=== PATIENT | male | born 1935 | race Caucasian/White ===

== ENCOUNTER 2016-12-13 12:17 | Inpatient (IN) | payer MEDICARE, BC ==
[~2016-12-13] VITALS: Ht 180.3 cm; Wt 67.9 kg
[2016-12-13 14:06] LABS: BASO % 0.7 % (0.0-1.0); EOS # 0.1 K/mm3 (0.0-0.50); EOS % 1.5 % (0.0-3.0); LARGE UNSTAINED CELL # 0.2 K/mm3 (0.0-0.4); LYMPH # 1.3 K/mm3 (1.5-4.5); LYMPH % 16.1 % (24.0-44.0); MEAN CORPUSCULAR HEMOGLOBIN 30.5 pg (27.0-33.0); MEAN CORPUSCULAR HGB CONC 33.7 g/dl (32.0-36.5); MEAN CORPUSCULAR VOLUME 90.5 fl (80.0-96.0); MONO # 0.4 K/mm3 (0.0-0.8); MONO % 5.4 % (0.0-5.0); NEUTROPHILS % 74.4 % (36.0-66.0); PLATELET COUNT, AUTOMATED 235 k/mm3 (150-450); RED CELL DISTRIBUTION WIDTH 12.6 % (11.5-14.5)
--- NOTE | 2016-12-13 14:15 | REP ---
Chest one-view HISTORY: Chest pain Comparison: None The lungs are clear. The heart is normal in size. The pulmonary vasculature is normal in appearance. Impression: No acute disease. Signed by Kit Rick MD 12/13/2016 02:08 P
[2016-12-13 14:20] LABS: ANION GAP 9 MEQ/L (8-16); BLOOD UREA NITROGEN 21 MG/DL (7-18); CALCIUM LEVEL 9.4 MG/DL (8.8-10.2); CARBON DIOXIDE LEVEL 29 MEQ/L (21-32); CHLORIDE LEVEL 101 MEQ/L (98-107); CREATININE FOR GFR 1.06 MG/DL (0.70-1.30); GLOMERULAR FILTRATION RATE > 60.0 (>35); GLUCOSE, FASTING 157 MG/DL (83-110); POTASSIUM SERUM 4.4 MEQ/L (3.5-5.1); SODIUM LEVEL 139 MEQ/L (136-145)
[2016-12-13] MEDS ORDERED: MECLIZINE 12.5 MG TAB As Ordered ONE (15:11)
--- NOTE | 2016-12-13 15:46 | REP ---
CT HEAD WITHOUT CONTRAST: HISTORY: Dizziness. Areas of decreased attenuation are present in the periventricular white matter. This represents small vessel ischemic disease. A small focus of decreased attenuation is present in the right cerebellum. This represents and old lacunar infarction. A small area of decreased attenuation is present in the posteromedial left cerebellum. This may represent a infarction of indeterminate age versus volume averaging with the horizontal fissure. There is no intraparenchymal hemorrhage, mass or midline shift. The ventricular system and cortical sulci are dilated consistent with mild volume loss. There is no extracerebral collection. Minimal mucosal thickening is present in the right mastoid air cells. The visualized sinuses are clear. IMPRESSION: 1. Small vessel ischemic disease. 2. 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 3. Possible small left cerebellar infarction versus volume averaging with the horizontal fissure. 4. Mild volume loss. MR may be helpful for further evaluation. Signed by Kit Rick MD 12/13/2016 03:48 P
[2016-12-13] MEDS ORDERED: GLUC1CAP9 PO (17:13)
[2016-12-13] MEDS ORDERED: FISH1000 PO (17:13)
--- NOTE | 2016-12-13 19:20 | REPUSA ---
CLINICAL HISTORY: Dizziness. TECHNIQUE: Three dimensional ihvy-fk-edkltw angiography is performed of the [place]. The kat[place] dy was performed without IV contrast agent. FINDINGS: The supraclinoid portions of the internal carotid arteries are of normal shape. The normal bifurcation is seen. The middle cerebral arteries are unremarkable in appearance. The posterior circu lation is visualized and shows no evidence of occlusion or aneurysm formation. The basilar tip is see n and shows no aneurysm formation. There is no evidence of beading to suggest vasculitis. IMPRESSION: MRA of the [place] is within normal limits. Thank you for your kind referral of this patient.
[2016-12-13] MEDS ORDERED: ASPIRIN 325 MG TAB As Ordered ONE (19:26)
--- NOTE | 2016-12-13 19:30 | REPUSA ---
CLINICAL HISTORY: Dizziness TECHNIQUE: MRI of the brain was performed without administration of intravenous contrast material. T1 spine echo, T2 fast spin echo, DWI and FLAIR sequences were obtained in sagittal, axial and coronal planes. FINDINGS: Note is made of focal area of restricted diffusion involving medial aspect of hemispheric left cerebe llar compatible with acute infarct. The sella and parasellar regions are unremarkable in appearance. The corpus callosum and cerebellar t onsils are of normal configuration and position. There are no intra or extra-axial collections. There is no mass effect or midline shift. There is no evidence of hematoma formation. There is no hydrocep halus. The brain stem shows no mass effects, infarcts or hemorrhage. There are no cerebellopontine tumors. T he acoustic nerves are symmetrical. No cerebellar intra-axial pathology delineated. The fourth ventri claire and aqueduct are normal. No abnormalities of the optic nerves are identified. No dural or subdura l masses or collections are detected. There is evidence for generalized symmetrical dilatation of the ventricles and cortical sulci consist ent with parenchymal atrophy. There are bilateral periventricular and subcortical T2 and FLAIR hyperintensities extending into cent rum [place] compatible with severe chronic white matter ischemic disease. The visualized arterial structures demonstrate normal appearing flow voids. The VII and VIII nerve bu ndles are visualized and are unremarkable in appearance. Mucosal thickening is seen involving bilateral ethmoid and maxillary sinuses compatible with chronic sinusitis. IMPRESSION: 1. Generalized age-appropriate parenchymal atrophy. 2. Bilateral periventricular and subcortical white matter severe chronic ischemic changes. 3. Chronic ethmoid and maxillary sinusitis. 4. Acute left cerebellar infarct. Results were reported to ADY FARMER
--- NOTE | 2016-12-13 19:30 | REPUSA ---
HISTORY: Dizziness. TECHNIQUE: resonance angiography of the neck was performed at 1.5T with 2-D axial ongf-nq-irtkva imag es. During the dynamic injection of gadolinium contrast material intravenously coronal 3D time-of-fli ght MRA of the neck was performed. All images are retrospectively targeted and reformatted in three d imensions according to standard protocol. Motion degraded study. FINDINGS: NECK - There is normal anatomy. The right vertebral artery is dominant. No flow restrictive stenoses. Mild atherosclerotic changes are noted at both common carotid bifurcations and proximal ICAs. IMPRESSION: Mild atherosclerotic changes are noted at both common carotid bifurcations and proximal ICAs. Thank you for your kind referral of this patient
[2016-12-13] MEDS ORDERED: ONDANSETRON 4MG/2ML VIAL (J2405) IV PRN (19:45)
[2016-12-13] MEDS ORDERED: ACETAMINOPHEN TAB 650MG DOSE (2X325MG) PO PRN (19:45)
--- NOTE | 2016-12-13 19:58 | ECGEPIP ---
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
[2016-12-13] MEDS ORDERED: CARVedilol 3.125 MG TAB PO ONE (21:00)
--- NOTE | 2016-12-13 21:09 | HPE ---
DATE OF ADMISSION: 12/13/2016 PRIMARY CARE PROVIDER: [facility] HISTORY OF PRESENT ILLNESS: 81-year-old gentleman presents with elevated blood pressure, systolic in the 190 range at [facility], was sent here due to continued dizziness, worsening over the last several days to 1 week. The , who is present at bedside, also stated that she noticed that he had some gait instability which is unusual for him and he has been relatively healthy up to this point. He denies double vision, blurry vision, no difficulty with speech or swallow. No chest pain. No cough. No hemoptysis. No nausea or vomiting. PAST MEDICAL HISTORY: None. PAST SURGICAL HISTORY: Nasal polyp removed by Dr. Rose recently. SOCIAL HISTORY: He smoked a pipe for years, quit about 10 years ago. No alcohol use. No travel history. He has had sick exposure with his having an upper respiratory infection in October. FAMILY HISTORY: Noncontributory due to advanced age. ALLERGIES: No known drug allergies. HOME MEDICATIONS: - glucosamine chondroitin twice a day - fish oil twice a day REVIEW OF SYSTEMS: Constitutional: No fevers, chills, rigors. No change in appetite. HEENT: No blurry vision, double vision or tinnitus. No difficulty with speech or swallow. Pulmonary: No productive sputum, cough or hemoptysis. Cardiovascular: No chest pain. No paroxysmal nocturnal dyspnea (PND). No orthopnea. No lower extremity edema. GI: No nausea or vomiting, diarrhea. No hematochezia or melena. : No dysuria, frequency or hematuria. Musculoskeletal: No bone, muscle or joint pain, swelling or erythema. Neurologic: Increased dizziness with abnormal MRI. See below. Endocrine: Negative for diabetes. Negative for thyroid disorder. Hematology: No history of bleeding or bruising disorder. No prior history of venous thromboembolism. Oncology: No history of cancer. Psychiatry: No history of depression, anxiety. No suicidal ideation. No audiovisual hallucination. 10-point review of systems complete; pertinent positives are listed. PHYSICAL EXAMINATION: Temperature is 96.6, respiratory rate 18, nonlabored, pulse is 82 and regular, blood pressure did go to 193/91, did not appear to be orthostatic on orthostatic evaluation. In the emergency department, he was given a 500 mL bolus of normal saline and meclizine 25 mg. HEENT: Unremarkable. No lateral nystagmus. Throat is clear. Neck: Supple. Lungs: Clear. Heart: Regular rate and rhythm. Abdomen: Soft. Extremities: No edema, no calf tenderness. Riveter Helper strength is equal. Neurologic: Cranial nerves II-XII grossly intact. He does not demonstrate any focal neurologic deficits. I did not stand him up due to complaint of gait instability. LABS AND DIAGNOSTICS: 12-lead EKG - sinus rhythm with no acute ST-T wave abnormality. White count is 8.0, hemoglobin 14.9 and platelets 235,000. Sodium 139, potassium 4.4, chloride 101, bicarbonate 29, anion gap 9, BUN 21, creatinine 1.06, glucose 157, hemoglobin A1c 6.1, CK is 100, CK-MB 2.2, troponin less than 0.02. Urinalysis is unremarkable. Urine culture pending. Chest x-ray: No acute cardiopulmonary processes. No infiltrate. No consolidation. Head CT: Small vessel ischemic disease, old right cerebellar lacuna infarct and possible left small cerebellar infarct versus volume averaging with horizontal fissure, mild volume loss. MRI of the carotid arteries: Mild atherosclerotic changes noted with both common carotid bifurcations and proximal ICAs, no significant stenosis reported. Brain MRI: Generalized age-appropriate parenchymal atrophy, bilateral periventricular subcortical white matter, severe chronic ischemic changes noted, chronic ethmoid and maxillary sinusitis and acute left cerebellar infarct is noted. MRA of the brain within normal limits. IMPRESSION: Mr. Mario is a pleasant 81-year-old gentleman who has been relatively healthy up to this point, but has had ongoing issues with dizziness and gait instability for the last several days. He was sent in by his provider at [facility] due to elevated blood pressures. MRI did reveal a new acute left cerebellar infarct. PROBLEM LIST: 1. Acute cerebellar infarct with dizziness. 2. Hypertensive emergency versus urgency. 3. Otherwise relatively healthy. PLAN: The patient will be admitted to progressive care unit (PCU) on telemetry. Will check a 2D echo to complete workup for his stroke. Dr. Pereira will be consulted. The patient will continue on full-dose aspirin. Will check a lipid panel in the morning as well as a 2D echo. Will start on Coreg 3.125 mg times one now and daily starting tomorrow morning with hold parameters. Deep vein thrombosis (DVT) prophylaxis with subcu Lovenox, and I did request consults from physical therapy, occupational therapy and speech therapy. DISPOSITION: Anticipate the patient to be ready for home discharge in 2-3 days, depending on how he does with his gait. Tomorrow morning, the patient will be followed by Dr. Graff.
[2016-12-13 21:10] VITALS: BP 158/75
[2016-12-13] MEDS ORDERED: DOCUSATE SODIUM 100 MG CAP As Ordered ONE (21:37)
[2016-12-13] MEDS: DOCUSATE SODIUM 100 MG CAP PO SCH (21:41)
[2016-12-14] VITALS (8 sets, daily range): BP systolic 117–139; BP diastolic 56–72
[2016-12-14 06:55] LABS: MEAN CORPUSCULAR HEMOGLOBIN 31.4 pg (27.0-33.0); MEAN CORPUSCULAR HGB CONC 34.5 g/dl (32.0-36.5); MEAN CORPUSCULAR VOLUME 91.1 fl (80.0-96.0); RED CELL DISTRIBUTION WIDTH 12.8 % (11.5-14.5); WHITE BLOOD COUNT 9.6 K/mm3 (4.0-10.0)
[2016-12-14 06:57] LABS: ANION GAP 8 MEQ/L (8-16); BLOOD UREA NITROGEN 16 MG/DL (7-18); CALCIUM LEVEL 8.7 MG/DL (8.8-10.2); CARBON DIOXIDE LEVEL 28 MEQ/L (21-32); CHLORIDE LEVEL 106 MEQ/L (98-107); CHOLESTEROL LEVEL 209 MG/DL (<200); CREATININE FOR GFR 1.03 MG/DL (0.70-1.30); GLOMERULAR FILTRATION RATE > 60.0 (>35); GLUCOSE, FASTING 106 MG/DL (83-110); SODIUM LEVEL 142 MEQ/L (136-145); TRIGLYCERIDES LEVEL 141 MG/DL (<150)
[2016-12-14] MEDS ORDERED: ENOXAPARIN 40 MG/0.4 ML SYRINGE (J1650) As Ordered ONE (07:53)
[2016-12-14] MEDS ORDERED: ATORVASTATIN 20 MG TAB As Ordered ONE (07:53)
[2016-12-14] MEDS ORDERED: DOCUSATE SODIUM 100 MG CAP As Ordered ONE (07:53)
[2016-12-14] MEDS ORDERED: ASPIRIN 325 MG TAB As Ordered ONE (07:54)
[2016-12-14] MEDS: ENOXAPARIN 40 MG/0.4 ML SYRINGE (J1650) SC SCH (08:09)
[2016-12-14] MEDS: DOCUSATE SODIUM 100 MG CAP PO SCH ×2 (08:10→21:25)
[2016-12-14] MEDS: ATORVASTATIN 20 MG TAB PO SCH (08:10)
[2016-12-14] MEDS: ASPIRIN 325 MG TAB PEG SCH (08:10)
[2016-12-14] MEDS: CARVedilol 3.125 MG TAB PO SCH (08:38)
--- NOTE | 2016-12-14 16:56 | EDDOCDS ---
Physician Documentation [facility] Name: Alfredo Mario Age: 81 yrs Sex: Male : 1935 Arrival Date: 12/13/2016 Time: 12:17 Bed Admit Hold Private MD: NO PRIMARY PHYSICIAN, . Disposition: 12/13/16 19:53 Hospitalization ordered by Ricardo Zhang for Inpatient Admission. 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 - Bed requested for PCU. - Status is Inpatient Admission. [facility] - Condition is Stable. - Problem is new. - Symptoms are unchanged. Historical: - Allergies: No known drug Allergies; - Home Meds: 1. glucosamine-chondroitin oral oral twice a day 2. Fish Oil Oral twice a day - PMHx: none; - PSHx: polyp removed from nose; - Social history: Smoking status: Patient states former smoker of tobacco. No barriers to communication noted, The patient speaks fluent Yi, Speaks appropriately for age. - Family history: Not pertinent. - : The pt / caregiver states he / she is not on anticoagulants. Home medication list is obtained from the patient. - Exposure Risk Screening:: None identified. Vital Signs: 12/13 12:19 BP 158 / 81; Pulse 76; Resp 18 S; Temp 96.6(O); Pulse Ox 95% on R/A; Weight 71.67 kg / gr2 158.01 lbs (R); Height 5 ft. 11 in. (180.34 cm) (R); Pain 2/10; 12:28 BP 154 / 96 (auto/); kc3 12:29 Pulse 70 MON; Pulse Ox 97% ; kc3 12:56 BP 195 / 93 (auto/); kc3 12:57 Pulse 84 MON; Pulse Ox 95% ; kc3 13:11 BP 173 / 80 (auto/); kc3 13:12 Pulse 70 MON; Pulse Ox 95% ; kc3 13:26 BP 163 / 80 (auto/); kc3 13:27 Pulse 70 MON; Pulse Ox 94% ; kc3 13:41 BP 171 / 80 (auto/); kc3 13:42 Pulse 70 MON; Pulse Ox 95% ; kc3 13:56 BP 193 / 91 (auto/); kc3 13:56 Pulse 82 MON; Pulse Ox 96% ; kc3 14:03 BP 185 / 88 (auto/); kc3 14:03 Pulse 78 MON; Pulse Ox 96% ; kc3 14:11 BP 174 / 87 (auto/); kc3 14:12 Pulse 76 MON; Pulse Ox 95% ; kc3 14:26 BP 176 / 86 (auto/); kc3 14:27 Pulse 74 MON; Pulse Ox 95% ; kc3 14:41 BP 182 / 88 (auto/); kc3 14:41 Pulse 74 MON; Pulse Ox 94% ; kc3 14:56 BP 182 / 79 (auto/); kc3 14:56 Pulse 74 MON; Pulse Ox 95% ; kc3 15:11 BP 164 / 77 (auto/); kc3 15:11 Pulse 80 MON; Pulse Ox 96% ; kc3 15:22 BP 179 / 82 Supine; Pulse 93; Resp 18; Pulse Ox 95% on R/A; kc3 15:23 BP 176 / 85 Sitting; Pulse 91; Resp 18; Pulse Ox 97% on R/A; kc3 15:23 BP 157 / 77 Standing; Pulse 96; Resp 18; Pulse Ox 97% on R/A; kc3 15:26 BP 158 / 77 (auto/); kc3 15:27 Pulse 80 MON; Pulse Ox 93% ; kc3 15:41 BP 160 / 84 (auto/); kc3 15:42 Pulse 74 MON; Pulse Ox 95% ; kc3 15:56 BP 169 / 85 (auto/); kc3 15:56 Pulse 72 MON; Pulse Ox 95% ; kc3 16:11 BP 163 / 81 (auto/); kc3 16:11 Pulse 70 MON; Pulse Ox 95% ; kc3 16:26 BP 179 / 81 (auto/); kc3 16:26 Pulse 78 MON; Pulse Ox 95% ; kc3 16:41 BP 166 / 89 (auto/); kc3 16:42 Pulse 74 MON; Pulse Ox 95% ; kc3 16:56 BP 174 / 88 (auto/); kc3 16:57 Pulse 84 MON; Pulse Ox 96% ; kc3 17:11 BP 165 / 87 (auto/); kc3 17:12 Pulse 74 MON; Pulse Ox 96% ; kc3 17:26 BP 162 / 82 (auto/); kc3 17:27 Pulse 74 MON; Pulse Ox 95% ; kc3 19:11 BP 158 / 73 (auto/); 19:20 Pulse 82 MON; Pulse Ox 95% ; 19:26 BP 173 / 95 (auto/); oct 19:27 Pulse 76 MON; Pulse Ox 95% ; nov 14:56 BP 171 / 93 (auto/); nov 14:57 Pulse 80 MON; Pulse Ox 96% ; oct 20:11 BP 168 / 94 (auto/); oct 20:12 Pulse 76 MON; Pulse Ox 95% ; nov 15:41 BP 181 / 93 (auto/); nov 15:42 Pulse 76 MON; Pulse Ox 95% ; oct 12:19 Body Mass Index 22.04 (71.67 kg, 180.34 cm) gr2 15:23 Pt reports dizziness while sitting kc3 15:23 Pt reports dizziness kc3 MDM: 12:56 ECG WITH READING ER PHYS+CARDIAG ordered. EDMS 13:34 Cold Mill Inspector/Pulse Ox/q 15 min VS ordered. fg 13:34 Accucheck ordered. fg 13:34 IV Saline Lock ordered. fg 13:34 Orthostatic VS ordered. fg 13:34 Rhythm Strip to chart ordered. fg 13:35 Chest, 1 View Ordered. EDMS 13:35 Basic Metabolic Profile Ordered. EDMS 13:35 CBC with Diff Ordered. EDMS 13:35 Urinalysis Ordered. EDMS 13:35 Urine Culture Ordered. EDMS 14:05 Fingerstick Blood Sugar Ordered. EDMS 14:50 Financial registration complete. mm15 14:50 [facility] Payment Agreement was scanned into Recorded Future and attached to record. mm15 14:53 Meclizine 25 mg PO once ordered. le 14:54 A1C Ordered. EDMS 14:54 CT Head Without Contrast Ordered. EDMS 14:55 Misc. Nursing Order ordered. le 15:01 CARDIAC INJURY PROFILE Ordered. EDMS 15:01 TROPONIN Ordered. EDMS 15:20 NS 0.9% 500 ml IV at bolus once ordered. le 15:20 Basic Metabolic Profile Reviewed. le 15:20 CBC with Diff Reviewed. le 15:20 Fingerstick Blood Sugar Reviewed. le 15:20 A1C Reviewed. le 15:20 Chest, 1 View Reviewed. le 15:23 TROPONIN Reviewed. le 16:44 Basic Metabolic Profile Reviewed. le 16:44 CARDIAC INJURY PROFILE Reviewed. le 16:44 CT Head Without Contrast Reviewed. le 16:50 MRI Screening Tool - Place on chart, inform RN ordered. le 16:51 -MRA-Brain without contrast Ordered. EDMS 16:52 -MRI-Brain without Ordered. EDMS 16:52 REGULAR+DIET ordered. EDMS 16:55 BED REQUEST+ADM ordered. EDMS 17:38 MRI Screening Tool - Place on chart, inform RN complete. lbd 18:41 MRA CAROTID W/O FOL WITH Ordered. EDMS 19:22 Aspirin 325 mg PO once ordered. le 19:22 Urinalysis Reviewed. le 19:45 COMPLETE BLOOD COUNT Ordered. EDMS 19:45 BASIC METABOLIC PROFILE Ordered. EDMS 19:46 PHYSICAL THERAPY EVAL & TREAT ordered. EDMS 19:46 Admission / Observation Status ordered. EDMS 19:47 ECHOCARD,DOPPLER/COLOR FLOW ordered. EDMS 20:35 CARDIAC RISK PROFILE Ordered. EDMS 02 14:55 T-Sheet-- Draft Copy was scanned into Recorded Future and attached to record. Point of Care Testing: Blood Glucose: 12/13 13:59 Blood Glucose: 141 mg/dL; kc3 Ranges: Administered Medications: 15:22 Drug: Meclizine 25 mg [meclizine 12.5 mg tablet (2 tabs)] Route: PO; kc3 15:35 Drug: NS 0.9% 500 ml [sodium chloride 0.9 % intravenous solution] Route: IV; Rate: kc3 bolus; Site: left antecubital; 19:31 Drug: Aspirin 325 mg [aspirin 325 mg tablet (1 tabs)] Route: PO; [id number] Signatures: Dispatcher [employer] EDAZ Anjelica Castelan, Call Circuit Worker Unit [facility] Camilla Rodriguez RN RN Kim Munguia, Yasir Reg Priyanka Salas,RN RN ck1 Marlin Mendoza FNP [employer]RA[employer]ER Michael Rose mm15 Queenie Christian MD MD fg Crane, KelsiRN RN kc3 Erika Carias RN [id number] The chart was reviewed and I authenticate all verbal orders and agree with the evaluation and treatment provided.Corrections: (The following items were deleted from the chart) 15:01 14:56 TROPONIN+LAB ordered. EDMS EDMS 15:01 14:56 CARDIAC INJURY PROFILE+LAB ordered. EDAZ EDMS 18:41 16:52 MRA-Carotid with contrast+MR ordered. EDMS EDMS 20:35 20:19 CARDIAC RISK PROFILE ordered. EDMS EDMS Attachments: 14:50 [facility] Payment Agreement mm15 12/14 14:55 T-Sheet-- Draft Copy gb MTDD
--- NOTE | 2016-12-14 16:56 | EDDOCDS ---
Nurse's Notes [facility] Name: Alfredo Mina Age: 81 yrs Sex: Male : 1935 Arrival Date: 12/13/2016 Time: 12:17 Bed Admit Hold Private MD: NO PRIMARY PHYSICIAN, . 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 for high blood pressure and ck1 intermittent dizziness "for a while". Adult Sepsis Screening: The patient does not have new or worsening altered mentation. Patient's respiratory rate is less than 22. Systolic blood pressure is greater than 100. Patient has a qSOFA score of 0- Negative Sepsis Screen. Suicide/Homicide risk assessment- the patient denies having any suicidal and/or homicidal ideations and does not present with any other emotional, behavioral or mental health complaints. Status: Patient is not a slot service specialist or dependent. Transition of care: patient was received from a primary care office; [facility]. 12:22 Method Of Arrival: Wheelchair ck1 12:22 Acuity: LIBRADO Level 3 ck1 Triage Assessment: 12:25 General: Appears in no apparent distress, comfortable, Behavior is appropriate for age, ck1 cooperative. Pain: Denies pain. Neurological: Level of Consciousness is awake, alert, obeys commands, Oriented to person, place, time, Reports dizziness. Respiratory: Respiratory effort is unlabored, Respiratory pattern is regular, symmetrical. GI: Denies nausea, vomiting. Derm: Skin is intact, Skin is pink, warm & dry. Musculoskeletal: Circulation, motion, and sensation intact Range of motion intact in all extremities. Historical: - Allergies: No known drug Allergies; - Home Meds: 1. glucosamine-chondroitin oral oral twice a day 2. Fish Oil Oral twice a day - PMHx: none; - PSHx: polyp removed from nose; - Social history: Smoking status: Patient states former smoker of tobacco. No barriers to communication noted, The patient speaks fluent Cymraes, Speaks appropriately for age. - Family history: Not pertinent. - : The pt / caregiver states he / she is not on anticoagulants. Home medication list is obtained from the patient. - Exposure Risk Screening:: None identified. Screenin:57 Screening information is obtained from the patient. Fall risk: At risk due to kc3 dizziness. The following interventions are performed due to a positive Fall Risk Screen: Fall Risk is added to Special Handling on the patient Summary Screen. A Fall Risk Bracelet was applied to the patient. Side Rails are placed in the up position. A Call [place] is given with instruction to call for help when getting out of bed. Fall Alert bracelet is placed on the patient. Assistance ADL's: requires no assistance with activities of daily living. Abuse/DV Screen: The patient / caregiver reports he/she is: not in a situation that causes fear, pain or injury. Nutritional screening: No deficits noted. Advance Directives: Currently, there is no health care proxy. home support is adequate. Assessment: 12:56 General: Appears in no apparent distress, comfortable, Behavior is appropriate for age, kc3 cooperative. Pain: Denies pain. Neurological: Level of Consciousness is awake, alert, obeys commands, Oriented to person, place, time, Reports dizziness. Cardiovascular: Rhythm is regular. Respiratory: Airway is patent Respiratory effort is even, unlabored. Derm: Skin is pink, warm & dry. Musculoskeletal: Circulation, motion, and sensation intact. 13:50 General: Appears in no apparent distress, comfortable, Behavior is appropriate for age, kc3 cooperative. Pain: Denies pain. Neurological: Level of Consciousness is awake, alert, obeys commands, Oriented to person, place, time, Reports dizziness. Cardiovascular: Rhythm is regular. Respiratory: Respiratory effort is even, unlabored. Derm: Skin is pink, warm & dry. 14:30 General: Appears in no apparent distress, comfortable, Behavior is appropriate for age, kc3 cooperative. Pain: Denies pain. Neurological: Reports dizziness. Cardiovascular: Rhythm is sinus rhythm. Respiratory: Respiratory effort is even, unlabored. Derm: Skin is pink, warm & dry. 15:25 General: Appears in no apparent distress, comfortable, Behavior is appropriate for age, kc3 cooperative. Pain: Denies pain. Neurological: Level of Consciousness is awake, alert, obeys commands, Reports dizziness. Cardiovascular: Rhythm is sinus rhythm. Respiratory: Respiratory effort is even, unlabored. Derm: Skin is pink, warm & dry. 16:00 General: Appears in no apparent distress, comfortable, Behavior is appropriate for age, kc3 cooperative. Pain: Denies pain. Neurological: Level of Consciousness is awake, alert, obeys commands, Reports dizziness. Cardiovascular: Rhythm is sinus rhythm. Respiratory: Airway is patent Respiratory effort is even, unlabored. Derm: Skin is pink, warm & dry. Musculoskeletal: Circulation, motion, and sensation intact. 17:00 General: Appears in no apparent distress, comfortable, Behavior is appropriate for age, kc3 cooperative. Pain: Denies pain. Neurological: Level of Consciousness is awake, alert, obeys commands, Oriented to person, place, time. Cardiovascular: Rhythm is sinus rhythm. Respiratory: Airway is patent Respiratory effort is even, unlabored, Respiratory pattern is regular, symmetrical. Derm: Skin is pink, warm & dry. 17:45 General: Pt transported to MRI. . kc3 19:21 General: Appears in no apparent distress, comfortable, Behavior is appropriate for age, js15 cooperative. Pain: Denies pain. Neurological: Level of Consciousness is awake, alert, obeys commands, Oriented to person, place, time. Cardiovascular: Rhythm is regular. Respiratory: Airway is patent Respiratory effort is even, unlabored, Respiratory pattern is regular, symmetrical. Derm: Skin is pink, warm & dry. Vital Signs: 12:19 BP 158 / 81; Pulse 76; Resp 18 S; Temp 96.6(O); Pulse Ox 95% on R/A; Weight 71.67 kg gr2 (R); Height 5 ft. 11 in. (180.34 cm) (R); Pain 2/10; 12:28 BP 154 / 96 (auto/); kc3 12:29 Pulse 70 MON; Pulse Ox 97% ; kc3 12:56 BP 195 / 93 (auto/); kc3 12:57 Pulse 84 MON; Pulse Ox 95% ; kc3 13:11 BP 173 / 80 (auto/); kc3 13:12 Pulse 70 MON; Pulse Ox 95% ; kc3 13:26 BP 163 / 80 (auto/); kc3 13:27 Pulse 70 MON; Pulse Ox 94% ; kc3 13:41 BP 171 / 80 (auto/); kc3 13:42 Pulse 70 MON; Pulse Ox 95% ; kc3 13:56 BP 193 / 91 (auto/); kc3 13:56 Pulse 82 MON; Pulse Ox 96% ; kc3 14:03 BP 185 / 88 (auto/); kc3 14:03 Pulse 78 MON; Pulse Ox 96% ; kc3 14:11 BP 174 / 87 (auto/); kc3 14:12 Pulse 76 MON; Pulse Ox 95% ; kc3 14:26 BP 176 / 86 (auto/); kc3 14:27 Pulse 74 MON; Pulse Ox 95% ; kc3 14:41 BP 182 / 88 (auto/); kc3 14:41 Pulse 74 MON; Pulse Ox 94% ; kc3 14:56 BP 182 / 79 (auto/); kc3 14:56 Pulse 74 MON; Pulse Ox 95% ; kc3 15:11 BP 164 / 77 (auto/); kc3 15:11 Pulse 80 MON; Pulse Ox 96% ; kc3 15:22 BP 179 / 82 Supine; Pulse 93; Resp 18; Pulse Ox 95% on R/A; kc3 15:23 BP 176 / 85 Sitting; Pulse 91; Resp 18; Pulse Ox 97% on R/A; kc3 15:23 BP 157 / 77 Standing; Pulse 96; Resp 18; Pulse Ox 97% on R/A; kc3 15:26 BP 158 / 77 (auto/); kc3 15:27 Pulse 80 MON; Pulse Ox 93% ; kc3 15:41 BP 160 / 84 (auto/); kc3 15:42 Pulse 74 MON; Pulse Ox 95% ; kc3 15:56 BP 169 / 85 (auto/); kc3 15:56 Pulse 72 MON; Pulse Ox 95% ; kc3 16:11 BP 163 / 81 (auto/); kc3 16:11 Pulse 70 MON; Pulse Ox 95% ; kc3 16:26 BP 179 / 81 (auto/); kc3 16:26 Pulse 78 MON; Pulse Ox 95% ; kc3 16:41 BP 166 / 89 (auto/); kc3 16:42 Pulse 74 MON; Pulse Ox 95% ; kc3 16:56 BP 174 / 88 (auto/); kc3 16:57 Pulse 84 MON; Pulse Ox 96% ; kc3 17:11 BP 165 / 87 (auto/); kc3 17:12 Pulse 74 MON; Pulse Ox 96% ; kc3 17:26 BP 162 / 82 (auto/); kc3 17:27 Pulse 74 MON; Pulse Ox 95% ; kc3 19:11 BP 158 / 73 (auto/); js15 19:20 Pulse 82 MON; Pulse Ox 95% ; js15 19:26 BP 173 / 95 (auto/); oct 19:27 Pulse 76 MON; Pulse Ox 95% ; oct 19:56 BP 171 / 93 (auto/); nov 14:57 Pulse 80 MON; Pulse Ox 96% ; oct 20:11 BP 168 / 94 (auto/); oct 20:12 Pulse 76 MON; Pulse Ox 95% ; oct 20:41 BP 181 / 93 (auto/); nov 15:42 Pulse 76 MON; Pulse Ox 95% ; oct 12:19 Body Mass Index 22.04 (71.67 kg, 180.34 cm) gr2 15:23 Pt reports dizziness while sitting kc3 15:23 Pt reports dizziness kc3 Vitals: 12:19 Log In Time: December 13, 2016 at 12:19. gr2 ED Course: 12:18 Patient visited by Lorena Fuentes. gr2 12:18 NO PRIMARY PHYSICIAN, . is Private Physician. gr2 12:18 Patient moved to Waiting gr2 12:21 Patient visited by Lorena Fuentes. gr2 12:21 Patient moved to Pre RCE gr2 12:24 Triage Initiated ck1 12:50 Yesi Pizarro,RN is Primary Nurse. jjr 12:50 Patient moved to 15 jjr 12:55 Patient visited by Yesi Pizarro,FELIPE. kc3 12:57 The patient / caregiver is instructed regarding the plan of care and ED course. kc3 13:00 EKG done. (by ED staff). Reviewed by Queenie Christian MD. dem1 13:01 Patient visited by Francois Sandoval. dem1 13:41 Patient visited by Yesi Pizarro,FELIPE. kc3 13:52 Marlin Mendoza FNP is PHCP. le 13:55 Patient visited by Marlin Mendoza FNP. le 13:55 Patient visited by Marlin Mendoza FNP. le 13:58 Basic Metabolic Profile Sent. kc3 13:58 CBC with Diff Sent. kc3 13:59 Inserted saline lock: 20 gauge in left antecubital area and blood collected. The kc3 patient tolerated the procedure well. 14:27 Chest, 1 View Returned. EDMS 14:50 [facility] [place] was scanned into [employer] and attached to record. mm15 14:57 Patient visited by Tracy Colindres PCA. ct3 15:34 Patient visited by Yesi Pizarro RN. kc3 16:05 Patient visited by Yesi Pizarro RN. kc3 16:16 CT Head Without Contrast Returned. EDMS 16:36 Patient visited by Yesi Pizarro RN. kc3 16:46 Urinalysis Sent. kc3 16:46 Urine Culture Sent. kc3 16:51 Patient visited by Marlin Mendoza FNP. le 17:35 Patient visited by Yesi Pizarro RN. kc3 18:09 Patient visited by Yesi Pizarro RN. kc3 18:09 Patient moved to MRI kc3 19:13 Patient moved to 15 ml3 19:20 Patient visited by Erika Carias RN. js15 19:53 Ricardo Zhang DO is Hospitalizing Provider. le 19:53 Patient moved to Admit Hold ml3 20:03 EKG-ADULT Returned. EDMS 20:09 -MRA-Brain without contrast Returned. EDMS 20:09 -MRI-Brain without Returned. EDMS 20:09 MRA CAROTID W/O FOL WITH Returned. EDMS 20:51 Patient moved to Oct 21:18 Patient moved to Admit Hold ml3 22:37 Primary Nurse role handed off by Yesi Pizarro RN [email or web address] 12/14 14:55 T-Sheet-- Draft Copy was scanned into [employer] and attached to record. gb Administered Medications: 12/13 15:22 Drug: Meclizine 25 mg [meclizine 12.5 mg tablet (2 tabs)] Route: PO; kc3 15:35 Drug: NS 0.9% 500 ml [sodium chloride 0.9 % intravenous solution] Route: IV; Rate: kc3 bolus; Site: left antecubital; 19:31 Drug: Aspirin 325 mg [aspirin 325 mg tablet (1 tabs)] Route: PO; js15 Point of Care Testing: Blood Glucose: 13:59 Blood Glucose: 141 mg/dL; kc3 Ranges: Order Results: Lab Order: Basic Metabolic Profile; SPEC'M 12/13/16 13:55 Test: GLUCOSE, FASTING; Value: 157; Range: 83-110; Abnormal: Above high normal; Units: MG/DL; Status: F Test: BLOOD UREA NITROGEN; Value: 21; Range: 7-18; Abnormal: Above high normal; Units: MG/DL; Status: F Test: CREATININE FOR GFR; Value: 1.06; Range: 0.70-1.30; Units: MG/DL; Status: F Test: GLOMERULAR FILTRATION RATE; Value: > 60.0; Range: >35; Status: F Test: SODIUM LEVEL; Value: 139; Range: 136-145; Units: MEQ/L; Status: F Test: POTASSIUM SERUM; Value: 4.4; Range: 3.5-5.1; Units: MEQ/L; Status: F Test: CHLORIDE LEVEL; Value: 101; Range: 98-107; Units: MEQ/L; Status: F Test: CARBON DIOXIDE LEVEL; Value: 29; Range: 21-32; Units: MEQ/L; Status: F Test: ANION GAP; Value: 9; Range: 8-16; Units: MEQ/L; Status: F Test: CALCIUM LEVEL; Value: 9.4; Range: 8.8-10.2; Units: MG/DL; Status: F Test Note: ; Units are mL/min/1.73 m2 Chronic Kidney Disease Staging per NKF: Stage I & II GFR >=60 Normal to Mildly Decreased Stage III GFR 30-59 Moderately Decreased Stage IV GFR 15-29 Severely Decreased Stage V GFR <15 Very Little GFR Left ESRD GFR <15 on BIBLE WORKER Lab Order: CBC with Diff; SPEC'M 12/13/16 13:55 Test: WHITE BLOOD COUNT; Value: 8.0; Range: 4.0-10.0; Units: K/mm3; Status: F Test: RED BLOOD COUNT; Value: 4.89; Range: 4.30-6.10; Units: M/mm3; Status: F Test: HEMOGLOBIN; Value: 14.9; Range: 14.0-18.0; Units: g/dl; Status: F Test: HEMATOCRIT; Value: 44.3; Range: 42.0-52.0; Units: %; Status: F Test: MEAN CORPUSCULAR VOLUME; Value: 90.5; Range: 80.0-96.0; Units: fl; Status: F Test: MEAN CORPUSCULAR HEMOGLOBIN; Value: 30.5; Range: 27.0-33.0; Units: pg; Status: F Test: MEAN CORPUSCULAR HGB CONC; Value: 33.7; Range: 32.0-36.5; Units: g/dl; Status: F Test: RED CELL DISTRIBUTION WIDTH; Value: 12.6; Range: 11.5-14.5; Units: %; Status: F Test: PLATELET COUNT, AUTOMATED; Value: 235; Range: 150-450; Units: k/mm3; Status: F Test: NEUTROPHILS %; Value: 74.4; Range: 36.0-66.0; Abnormal: Above high normal; Units: %; Status: F Test: LYMPH %; Value: 16.1; Range: 24.0-44.0; Abnormal: Below low normal; Units: %; Status: F Test: MONO %; Value: 5.4; Range: 0.0-5.0; Abnormal: Above high normal; Units: %; Status: F Test: EOS %; Value: 1.5; Range: 0.0-3.0; Units: %; Status: F Test: BASO %; Value: 0.7; Range: 0.0-1.0; Units: %; Status: F Test: LARGE UNSTAINED CELL %; Value: 2.0; Range: 0.0-4.0; Units: %; Status: F Test: NEUTROPHILS #; Value: 6.0; Range: 1.8-7.7; Units: K/mm3; Status: F Test: LYMPH #; Value: 1.3; Range: 1.5-4.5; Abnormal: Below low normal; Units: K/mm3; Status: F Test: MONO #; Value: 0.4; Range: 0.0-0.8; Units: K/mm3; Status: F Test: EOS #; Value: 0.1; Range: 0.0-0.50; Units: K/mm3; Status: F Test: BASO #; Value: 0.0; Range: 0.0-0.2; Units: K/mm3; Status: F Test: LARGE UNSTAINED CELL #; Value: 0.2; Range: 0.0-0.4; Units: K/mm3; Status: F Lab Order: Urinalysis; SPEC'M 12/13/16 13:55 Test: APPEARANCE, URINE; Value: CLEAR; Range: CLEAR; Status: F Test: COLOR, URINE; Value: YELLOW; Range: YELLOW; Status: F Test: PH,URINE; Value: 5.0; Range: 5.0-9.0; Units: UNITS; Status: F Test: SPECIFIC GRAVITY URINE AUTO; Value: 1.017; Range: 1.002-1.035; Status: F Test: PROTEIN, URINE AUTO; Value: NEGATIVE; Range: NEGATIVE; Units: mg/dL; Status: F Test: GLUCOSE, URINE (UA) AUTO; Value: NEGATIVE; Range: NEGATIVE; Units: mg/dL; Status: F Test: KETONE, URINE AUTO; Value: NEGATIVE; Range: NEGATIVE; Units: mg/dL; Status: F Test: UROBILINOGEN, URINE AUTO; Value: 0.2; Range: 0.0-2.0; Units: mg/dL; Status: F Test: BILIRUBIN, URINE AUTO; Value: NEGATIVE; Range: NEGATIVE; Status: F Test: NITRITE, URINE AUTO; Value: NEGATIVE; Range: NEGATIVE; Status: F Test: LEUKOCYTE ESTERASE, URINE AUTO; Value: NEGATIVE; Range: NEGATIVE; Status: F Test: BLOOD, URINE BLOOD; Value: NEGATIVE; Range: NEGATIVE; Status: F Test: WBC, URINE AUTO; Value: 1; Range: 0-3; Units: /HPF; Status: F Test: RBC, URINE AUTO; Value: 2; Range: 0-3; Units: /HPF; Status: F Test: BACTERIA, URINE AUTO; Value: NEGATIVE; Range: NEGATIVE; Status: F Test: SQUAMOUS EPITHELIAL CELL UR AU; Value: 0; Range: 0-6; Units: /HPF; Status: F Test: MUCUS, URINE; Value: SMALL; Range: NEGATIVE; Status: F Test: HYALINE CAST, URINE AUTO; Value: 0; Range: 0-1; Units: /LPF; Status: F Test: AMORPHOUS SEDIMENT; Value: SMALL; Range: NEGATIVE; Abnormal: Above high normal; Status: F Lab Order: Fingerstick Blood Sugar; SPEC'M 12/13/16 13:53 Test: BEDSIDE GLUCOSE; Value: 141; Range: 83-110; Abnormal: Above high normal; Units: MG/DL; Status: F Lab Order: A1C; SPEC'M 12/13/16 13:55 Test: HEMOGLOBIN A1c; Value: 6.1; Range: 4.5-6.2; Units: %; Status: F Test: ESTIMATED AVERAGE GLUCOSE; Value: 128; Range: 60-110; Abnormal: Above high normal; Units: MG/DL; Status: F Lab Order: CARDIAC INJURY PROFILE; [facility] 12/13/16 13:55 Test: CPK CREATINE PHOSPHOKINASE; Value: 100; Range: 39-308; Units: U/L; Status: F Test: CK-MB VALUE MASS; Value: 2.2; Range: 0.0-3.6; Units: NG/ML; Status: F Test: MB/CK RELATIVE INDEX; Value: 2.20; Range: < OR =4; Status: F Test Note: ; DIAGNOSIS CRITERIA MMB ng/ml Relative Index (RI) NON-AMI < or = 5 N/A CARR [place]ONE > 5 < or = 4 AMI > 5 > 4 Lab Order: TROPONIN; [facility] 12/13/16 13:55 Test: TROPONIN I; Value: < 0.02; Range: < 0.10; Units: NG/ML; Status: F Test Note: ; Troponin I Reference Interval for Conversion Logic LOCI: 99th Percentile= 0.00-0.045 ng/ml Risk Stratification: <= 0.10 ng/ml Decreased Risk for Adverse Clinical Events. 0.10-1.50 ng/ml Increased Risk for Adverse Clinical Events. Evaluation of additional criterion and/or repeat testing in 2-6 hours is suggested to rule out myocardial damage. >= 1.50 ng/ml Indicative of Myocardial Injury. Lab Order: COMPLETE BLOOD COUNT; [facility] 12/14/16 06:12 Test: WHITE BLOOD COUNT; Value: 9.6; Range: 4.0-10.0; Units: K/mm3; Status: F Test: RED BLOOD COUNT; Value: 4.54; Range: 4.30-6.10; Units: M/mm3; Status: F Test: HEMOGLOBIN; Value: 14.3; Range: 14.0-18.0; Units: g/dl; Status: F Test: HEMATOCRIT; Value: 41.4; Range: 42.0-52.0; Abnormal: Below low normal; Units: %; Status: F Test: MEAN CORPUSCULAR VOLUME; Value: 91.1; Range: 80.0-96.0; Units: fl; Status: F Test: MEAN CORPUSCULAR HEMOGLOBIN; Value: 31.4; Range: 27.0-33.0; Units: pg; Status: F Test: MEAN CORPUSCULAR HGB CONC; Value: 34.5; Range: 32.0-36.5; Units: g/dl; Status: F Test: RED CELL DISTRIBUTION WIDTH; Value: 12.8; Range: 11.5-14.5; Units: %; Status: F Test: PLATELET COUNT, AUTOMATED; Value: 222; Range: 150-450; Units: k/mm3; Status: F Lab Order: BASIC METABOLIC PROFILE; SPEC'M 12/14/16 06:12 Test: GLUCOSE, FASTING; Value: 106; Range: 83-110; Units: MG/DL; Status: F Test: BLOOD UREA NITROGEN; Value: 16; Range: 7-18; Units: MG/DL; Status: F Test: CREATININE FOR GFR; Value: 1.03; Range: 0.70-1.30; Units: MG/DL; Status: F Test: GLOMERULAR FILTRATION RATE; Value: > 60.0; Range: >35; Status: F Test: SODIUM LEVEL; Value: 142; Range: 136-145; Units: MEQ/L; Status: F Test: POTASSIUM SERUM; Value: 4.0; Range: 3.5-5.1; Units: MEQ/L; Status: F Test: CHLORIDE LEVEL; Value: 106; Range: 98-107; Units: MEQ/L; Status: F Test: CARBON DIOXIDE LEVEL; Value: 28; Range: 21-32; Units: MEQ/L; Status: F Test: ANION GAP; Value: 8; Range: 8-16; Units: MEQ/L; Status: F Test: CALCIUM LEVEL; Value: 8.7; Range: 8.8-10.2; Abnormal: Below low normal; Units: MG/DL; Status: F Test Note: ; Units are mL/min/1.73 m2 Chronic Kidney Disease Staging per NKF: Stage I & II GFR >=60 Normal to Mildly Decreased Stage III GFR 30-59 Moderately Decreased Stage IV GFR 15-29 Severely Decreased Stage V GFR <15 Very Little GFR Left ESRD GFR <15 on BIBLE WORKER Lab Order: CARDIAC RISK PROFILE; SPEC' 12/14/16 06:12 Test: TRIGLYCERIDES LEVEL; Value: 141; Range: <150; Units: MG/DL; Status: F Test: CHOLESTEROL LEVEL; Value: 209; Range: <200; Abnormal: Above high normal; Units: MG/DL; Status: F Test: HDL CHOLESTEROL; Value: 38; Range: >40; Abnormal: Below low normal; Units: MG/DL; Status: F Test: LDL CHOLESTEROL; Value: 142.8; Range: <100; Abnormal: Above high normal; Units: MG/DL; Status: F Test: NON-HDL-C; Value: 171; Units: MG/DL; Status: F Test: CHOLESTEROL RISK RATIO; Value: 5.500; Range: <5; Abnormal: Above high normal; Status: F Radiology Order: EKG-ADULT Test: EKG-ADULT REASON FOR EXAMINATION: dizziness; Stationary ECG Study; [facility] - ED; ; Test Date: 2016-12-13; Pat Name: ALFREDO MINA Department:; Room: -; Gender: M Lining 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 The heart is normal in size. The pulmonary vasculature is; normal in appearance.; ; Impression: No acute disease.; ; ; Signed by; Kit Rick MD 12/13/2016 02:08 P; Radiology Order: CT Head Without Contrast Test: CT Head Without Contrast REASON FOR EXAMINATION: dizziness; CT HEAD WITHOUT CONTRAST:; ; HISTORY: Dizziness.; ; Areas of decreased attenuation are present in the periventricular white matter.; This represents small vessel ischemic disease. A small focus of decreased; attenuation is present in the right cerebellum. This represents and old lacunar; infarction. A small area of decreased attenuation is present in the posteromedial; left cerebellum. This may represent a infarction of indeterminate age versus; volume averaging with the horizontal fissure. There is no intraparenchymal; hemorrhage, mass or midline shift. The ventricular system and cortical sulci are; dilated consistent with mild volume loss. There is no extracerebral collection.; Minimal mucosal thickening is present in the right mastoid air cells. The; visualized sinuses are clear.; ; IMPRESSION:; ; 1. Small vessel ischemic disease.; ; 2. 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 Possible small left cerebellar infarction versus volume averaging with the; horizontal fissure.; ; 4. Mild volume loss. MR may be helpful for further evaluation.; ; ; Signed by; Kit Rick MD 12/13/2016 03:48 P; Radiology Order: -MRA-Brain without contrast Test: -MRA-Brain without contrast REASON FOR EXAMINATION: possible cerebellar infarct; ; CLINICAL HISTORY: Dizziness.; TECHNIQUE: Three dimensional [id number] angiography is performed of the [place]. The [place]; dy was performed without IV contrast agent.; FINDINGS: The supraclinoid portions of the internal carotid arteries are of normal shape. The normal; bifurcation is seen. The middle cerebral arteries are unremarkable in appearance. The posterior circu; lation is visualized and shows no evidence of occlusion or aneurysm formation. The basilar tip is see; n and shows no aneurysm formation. There is no evidence of beading to suggest vasculitis.; IMPRESSION:; MRA of the [place] is within normal limits.; Thank you for your kind referral of this patient.; ; Radiology Order: -MRI-Brain without Test: -MRI-Brain without REASON FOR EXAMINATION: poss cerebellar infarct; ; CLINICAL HISTORY: Dizziness; TECHNIQUE: MRI of the brain was performed without administration of intravenous contrast material. T1; spine echo, T2 fast spin echo, DWI and FLAIR sequences were obtained in sagittal, axial and coronal; planes.; FINDINGS:; Note is made of focal area of restricted diffusion involving medial aspect of hemispheric left cerebe; llar compatible with acute infarct.; The sella and parasellar regions are unremarkable in appearance. The corpus callosum and cerebellar t; onsils are of normal configuration and position. There are no intra or extra-axial collections. There; is no mass effect or midline shift. There is no evidence of hematoma formation. There is no hydrocep; halus.; The brain stem shows no mass effects, infarcts or hemorrhage. There are no cerebellopontine tumors. T; he acoustic nerves are symmetrical. No cerebellar intra-axial pathology delineated. The fourth ventri; claire and aqueduct are normal. No abnormalities of the optic nerves are identified. No dural or subdura; l masses or collections are detected.; There is evidence for generalized symmetrical dilatation of the ventricles and cortical sulci consist; ent with parenchymal atrophy.; There are bilateral periventricular and subcortical T2 and FLAIR hyperintensities extending into cent; [place] compatible with severe chronic white matter ischemic disease.; The visualized arterial structures demonstrate normal appearing flow voids. The VII and VIII nerve bu; ndles are visualized and are unremarkable in appearance.; Mucosal thickening is seen involving bilateral ethmoid and maxillary sinuses compatible with chronic; sinusitis.; IMPRESSION:; 1. Generalized age-appropriate parenchymal atrophy.; 2. Bilateral periventricular and subcortical white matter severe chronic ischemic changes.; 3. Chronic ethmoid and maxillary sinusitis.; 4. Acute left cerebellar infarct.; Results were reported to MARLIN FARMER; ; ; Radiology Order: MRA CAROTID W/O FOL WITH Test: MRA CAROTID W/O FOL WITH REASON FOR EXAMINATION: possible cerebellar infarct; ; HISTORY: Dizziness.; TECHNIQUE: resonance angiography of the neck was performed at 1.5T with 2-D axial [id number] imag; es. During the dynamic injection of gadolinium contrast material intravenously coronal 3D time-of-fli; ght MRA of the neck was performed. All images are retrospectively targeted and reformatted in three d; imensions according to standard protocol. Motion degraded study.; FINDINGS: NECK -; There is normal anatomy. The right vertebral artery is dominant. No flow restrictive stenoses.; Mild atherosclerotic changes are noted at both common carotid bifurcations and proximal ICAs.; IMPRESSION:; Mild atherosclerotic changes are noted at both common carotid bifurcations and proximal ICAs.; Thank you for your kind referral of this patient; ; Outcome: 19:53 Decision to Hospitalize by Provider. bridget 12/14 16:55 Patient left the ED. [facility] Signatures: Dispatcher Med[employer] EDMS Camilla Rodriguez, RN RN [facility] Devyn, Tatiana Dexter, RN RN paulina Urbano, Kim, Reg Reg gb Ahmetaft,Priyanka,RN RN ck1 Richmond Gann, Senior Attorney Unit ml3 Joe Naylor, QUALITY CONTROL MICROBIOLOGIST QUALITY CONTROL MICROBIOLOGIST kb5 Marlin Mendoza, WORKFORCE STAFFING ADVISOR WORKFORCE STAFFING ADVISOR Yolette Jamison, RN RN jjr Bernadine, Tracy, QUALITY CONTROL MICROBIOLOGIST QUALITY CONTROL MICROBIOLOGIST ct3 Francois Sandoval dem1 Lorena Fuentes gr2 Michael Lorenz mm15 Erika Carias,RN RN js15 Yesi Pizarro,RN RN kc3 Corrections: (The following items were deleted from the chart) 12/13 15:01 15:01 CARDIAC INJURY PROFILE+LAB sent. [facility] EDOR 15:01 15:01 TROPONIN+LAB sent. [facility] EDOR GIOVANNID
[2016-12-15 04:36] VITALS: BP 121/70
[2016-12-15 05:36] LABS: MEAN CORPUSCULAR HEMOGLOBIN 31.3 pg (27.0-33.0); MEAN CORPUSCULAR HGB CONC 34.3 g/dl (32.0-36.5); MEAN CORPUSCULAR VOLUME 91.2 fl (80.0-96.0); RED CELL DISTRIBUTION WIDTH 12.9 % (11.5-14.5); WHITE BLOOD COUNT 8.6 K/mm3 (4.0-10.0)
[2016-12-15 05:51] LABS: ANION GAP 6 MEQ/L (8-16); BLOOD UREA NITROGEN 24 MG/DL (7-18); CALCIUM LEVEL 8.7 MG/DL (8.8-10.2); CARBON DIOXIDE LEVEL 27 MEQ/L (21-32); CHLORIDE LEVEL 108 MEQ/L (98-107); CREATININE FOR GFR 1.23 MG/DL (0.70-1.30); GLOMERULAR FILTRATION RATE > 60.0 (>35); GLUCOSE, FASTING 99 MG/DL (83-110); POTASSIUM SERUM 4.2 MEQ/L (3.5-5.1); SODIUM LEVEL 141 MEQ/L (136-145)
[2016-12-15 08:00] VITALS: BP 133/68
--- NOTE | 2016-12-15 08:10 | ECHO ---
DATE OF PROCEDURE: 12/14/2016 AGE: 81 GENDER: Male. INPATIENT: Currently in the emergency room. REFERRING PHYSICIAN: Dr. Ricardo Zhang INDICATION: Cerebrovascular accident, rule out cardiac source of embolic material. MEASUREMENTS: 2D MEASUREMENTS: RV: 3.5 cm LV: 4.1 cm Septum: 0.9 cm Posterior wall: 0.9 cm Aortic root: 3.1 cm LA: 3.2 cm LVEF: 65% DOPPLER MEASUREMENTS: AV: 1.2 m/s LVOT: 1.1 m/s LVOT diameter: 2.8 cm MV-E: 63 A: 81 E/A ratio: 0.8 Early mitral deceleration time: 264 ms E prime: 6 A prime: 8.5 E/E prime ratio: 10.5 PV: 0.8 m/s Pulmonary artery acceleration time: 109 ms RVSP: 30 mmHg IVC: 1.67 cm COMMENTS: Normal sinus rhythm without intraventricular conduction disturbance. Normal cardiac chamber sizes and wall thickness. On real-time imaging from the parasternal and apical projections, wall motion was symmetrical and normal to hyperkinetic. Slightly thickened mitral annulus, but normal leaflet thickness and excursion with no posterior systolic buckling. Three equal size aortic cusps with mildly thickened cusp edges, but adequate cusp separation. Normal aortic root size. No apparent intracardiac mass or pericardial effusion. Color flow Doppler study taken from the parasternal and apical projections showed trace mitral and very mild tricuspid but no aortic insufficiency (physiological findings). Guided continuous wave Doppler of his aortic valve showed a normal peak systolic velocity against left ventricular (LV) outflow tract obstruction. Pulsed and continuous wave Doppler of his LV inflow tract taken from the apical four-chamber projection showed normal diastolic filling velocities against mitral stenosis. However, there was more prominent late diastolic/atrial dependent filling pattern, diastolic dysfunction was confirmed by a prolonged early mitral deceleration time and tissue Doppler of his mitral annulus. His current estimated mean left atrial pressure was within normal limits. Pulsed and continuous wave Doppler of his pulmonary trunk showed a normal peak systolic velocity against right ventricular (RV) outflow tract obstruction. His pulmonary artery acceleration time was borderline abbreviated suggestive a slightly elevated pulmonary vascular resistance. Guided continuous wave Doppler of his tricuspid valve allowed our estimation of his right ventricular systolic pressure (borderline increased). His inferior vena cava was of normal size with normal respiratory collapse against an elevated central venous pressure. CONCLUSIONS: Unable to detect an intracardiac source of embolic material. Mild degenerative changes of both his mitral and aortic valvular apparatus without functional valvular abnormality. Could certainly not see any pedunculated vegetation, but could not rule out a sessile vegetation with certainty because of the valve thickening. Normal left ventricular size, wall thickness, and wall motion. Normal left atrial size, but Doppler evidence of an impairment of LV diastolic function commonly seen at his age with currently normal estimated mean left atrial pressure. Normal right heart chamber sizes with Doppler evidence of borderline pulmonary hypertension. IVC normal in size with normal respiratory collapse against an elevated central venous pressure.
[2016-12-15] MEDS: ATORVASTATIN 20 MG TAB PO SCH (08:26)
[2016-12-15] MEDS: ASPIRIN 325 MG TAB PEG SCH (08:26)
[2016-12-15] MEDS: CARVedilol 3.125 MG TAB PO SCH (08:26)
[2016-12-15] MEDS: DOCUSATE SODIUM 100 MG CAP PO SCH ×2 (08:26→20:08)
[2016-12-15] MEDS: ENOXAPARIN 40 MG/0.4 ML SYRINGE (J1650) SC SCH (08:27)
--- NOTE | 2016-12-15 10:09 | CR ---
DATE OF CONSULTATION: 12/14/2016 REFERRING PHYSICIAN: Dr. Joan Graff REASON FOR CONSULTATION: Imbalance, headache and dizziness. HISTORY OF PRESENT ILLNESS: Alfredo is an 81-year-old man who was at baseline state of health until Friday when he was getting gas for his truck and suddenly felt that his vision became dark for a couple of minutes. He also developed occipital headache radiating towards frontal head region which was seven or eight out of 10 in intensity. He later felt dizziness and imbalance. He went to his doctor at the [facility] and systolic blood pressure was around 190. He was referred to [facility] for further evaluation. He currently feels back to his baseline except that he may have some dizziness and imbalance. He denies any headache, neck or back pain currently. He denies any falls or loss of consciousness. He denies any seizures, dysphagia, dysarthria, diplopia, or urinary incontinence. DIAGNOSTIC STUDIES: His MRI scan of brain was reviewed and showed a medium-sized left cerebellar ischemic stroke. MRA of the neck showed mild internal carotid artery atherosclerosis. MRA of the brain was within normal limits. PAST MEDICAL HISTORY: Nasal polyps for which he had surgery. HOME MEDICATIONS: - chondroitin and glucosamine sulfate - fish oil SOCIAL HISTORY: He used to smoke a pipe for many years. He quit smoking many years ago. He has not smoked in last 10 years. He denies alcohol or illicit drugs. FAMILY HISTORY: Noncontributory. ALLERGIES: None. REVIEW OF SYSTEMS: All systems were reviewed and were found to be noncontributory except as mentioned in history of present illness. PHYSICAL EXAMINATION: Blood pressure 164/77, pulse 75, respiratory rate 18, temperature 98.9, 94% saturation on room air. HEART: Regular rate and rhythm. LUNGS: Clear to auscultation. HEENT: Examination is within normal limits. EXTREMITIES: No pedal edema. Peripheral pulses are palpable. ABDOMEN: Soft, nontender, nondistended. NEUROLOGIC EXAMINATION: The patient is awake, alert, oriented to place, person and time. Normal speech, comprehension and repetition. Extraocular muscles are intact. No facial weakness. Tongue and uvula are midline. 5/5 strength in all four extremities. Deep tendon reflexes 2+ throughout. Normal sensation to light touch, pinprick, and vibration on both sides. He has minimal dysmetria of left arm. His gait is mildly unsteady. Plantars are downgoing. ASSESSMENT: 1. Acute ischemic left cerebellar stroke. 2. Mild internal carotid artery atherosclerosis. 3. Dyslipidemia. PLAN: 1. Aspirin 325 mg by mouth daily. 2. Lipitor 40 mg by mouth daily. 3. Echocardiogram. 4. Telemetry monitoring to rule out atrial fibrillation. 5. Follow up with our office in two weeks after hospital discharge. 6. He will also be evaluated by physical and occupational therapy in the hospital.
[2016-12-15 12:00] VITALS: BP 141/72
[2016-12-15 16:00] VITALS: BP 122/67
[2016-12-15 19:58] VITALS: BP 135/71
--- NOTE | 2016-12-15 20:40 | IPN ---
DATE: 12/15/2016 The patient is seen and examined. Comfortable. Alert and oriented times three. No acute distress. Anxious to get discharged. Denies any chest pain, pressure, or discomfort. No neurological changes. Denies any headache. VITAL SIGNS: Temperature 96.2, pulse 65, respirations 20, blood pressure 122/67, pulse oximetry 96% on room air. LABORATORY: WBC 8.6, hemoglobin and hematocrit 14.1/41.3. Platelets 234. Chemistry: Sodium 141, potassium 4.2, chloride 108, bicarbonate 27, BUN 24, creatinine 1.23. PHYSICAL EXAMINATION: GENERAL: The patient is alert and oriented times three. No acute distress. HEENT: Normocephalic, atraumatic. CARDIAC: Regular rate and rhythm. Normal S1, S2. PULMONARY: Bilaterally clear to auscultation. ABDOMEN: Soft, nontender, nondistended. Positive bowel sounds. EXTREMITIES: No edema in bilateral lower extremities. NEUROLOGIC: Alert and oriented times three. Normal speech. Cranial nerves II through XII grossly intact. Reflexes: Bilateral patellar intact at 2+. Strength of bilateral upper and lower extremities 5/5. Auxqoj-xf-liyc limited, right upper extremity is still able to perform, left upper extremity negative. ASSESSMENT AND PLAN: This is an 81-year-old male patient with no significant underlying medical history, who presented with lightheadedness and gait instability for 7 days and was found to have new acute cerebellar infarct. 1. New acute left cerebellar infarct. Frequent neuro checks. Aspirin 325 mg by mouth daily, Lipitor. Telemetry monitoring. Echocardiogram. MRI and MRA of the brain. MRI of the neck appreciated. Neurology consulted. Outpatient followup in 2 weeks. 2. Hypertensive urgency, currently resolved. Beta kashif has been added. Monitor blood pressure. 3. Deep vein thrombosis (DVT) prophylaxis. Lovenox subcutaneously. 4. Dyslipidemia.. Continue statin. DISPOSITION: Likely discharge over the next 24 hours. The patient will need to be monitored given posterior stroke with high risk of increased intracranial pressure. The patient is currently relatively stable.
[2016-12-15] MEDS ORDERED: ONDANSETRON 4 MG TAB (S0181) PO PRN (22:30)
[2016-12-16 00:28] VITALS: BP 107/64
[2016-12-16 04:35] VITALS: BP 144/72
[2016-12-16 05:32] LABS: MEAN CORPUSCULAR HEMOGLOBIN 31.7 pg (27.0-33.0); MEAN CORPUSCULAR VOLUME 90.8 fl (80.0-96.0); RED CELL DISTRIBUTION WIDTH 12.9 % (11.5-14.5); WHITE BLOOD COUNT 8.5 K/mm3 (4.0-10.0)
[2016-12-16 05:58] LABS: CALCIUM LEVEL 8.5 MG/DL (8.8-10.2); CREATININE FOR GFR 1.24 MG/DL (0.70-1.30); GLOMERULAR FILTRATION RATE 59.7 (>35); POTASSIUM SERUM 4.3 MEQ/L (3.5-5.1)
--- NOTE | 2016-12-16 07:57 | IPN ---
DATE: 12/14/2016 Patient admitted overnight. Comfortable. Denies any chest pain, pressure or discomfort, shortness of breath. Reported lightheadedness has resolved. No headache noticed. Denies any vision change or hearing change. No neurological deficits at this time noticed by patient. VITAL SIGNS: Temperature 97.7, pulse 62, respirations 16, blood pressure 128/65 , pulse oximetry 94% on room air. LABORATORY DATA: WBC 9.6, hemoglobin and hematocrit 14.3/41.4. Platelets 222. Chemistry: Sodium 142, potassium 4, chloride 106, bicarbonate 28, BUN 16, creatinine 1.03. PHYSICAL EXAMINATION: Patient alert, oriented times three, in no acute distress. HEENT: Normocephalic, atraumatic. Throat is clear. Moist mucous membrane. NECK: Supple. PULMONARY: Bilateral clear. CARDIAC: Regular rate and rhythm. Normal S1, S2. ABDOMEN: Soft, nontender, nondistended. Positive bowel sounds. EXTREMITIES: No edema in bilateral lower extremities. NEUROLOGIC: Cranial nerves II-XII grossly intact. Motor strength bilateral upper and lower extremities symmetrical, 5/5. Parfnx-uu-fbnl, rapid alternating movement intact. ASSESSMENT AND PLAN: This is an 81-year-old gentleman with no significant underlying medical history presented with elevated blood pressure from [facility] with a week to several days of lightheadedness and headache found to have an acute left cerebellar infarct. PROBLEMS: 1. Acute left cerebellar infarct with dizziness. Telemetry. Close neuro checks. Aspirin 325 mg by mouth daily. Lipitor 40 mg by mouth daily. Neurology consulted. MRI/MRA of the brain. MRI of the neck. Echocardiogram. Physical therapy (PT), occupational therapy (OT). Frequent neuro check given patient has a stroke at a high risk area for herniation with posterior brain infarct. Case was discussed with Dr. Pereira. Given that the stroke is very small and only with minimal symptoms, appropriate for progressive care unit (PCU) monitor. Does not require intensive care unit (ICU) at this time. Will continue to evaluate. 2. Prediabetes. Continue to monitor. A1c is appreciated. 3. Hypertension. Monitor blood pressure. Patient currently on Coreg, aspirin. 4. Deep venous thrombosis (DVT) prophylaxis. Lovenox subcutaneously. DISPOSITION PLANNING: Will need to be monitored for 48-72 hours, neuro checks. Case discussed with Dr. Pereira, neurology. [facility]
[2016-12-16 08:00] VITALS: BP 133/60
[2016-12-16] MEDS: ATORVASTATIN 20 MG TAB PO SCH (08:25)
[2016-12-16] MEDS: ASPIRIN 325 MG TAB PEG SCH (08:25)
[2016-12-16 08:26] VITALS: BP 133/60
[2016-12-16] MEDS: CARVedilol 3.125 MG TAB PO SCH (08:26)
[2016-12-16] MEDS: DOCUSATE SODIUM 100 MG CAP PO SCH (08:26)
[2016-12-16] MEDS ORDERED: ASPI325T PO (08:26)
[2016-12-16] MEDS: ENOXAPARIN 40 MG/0.4 ML SYRINGE (J1650) SC SCH (08:26)
[2016-12-16] MEDS ORDERED: CARV3.12 PO (08:28)
[2016-12-16] MEDS ORDERED: COLA100C PO (08:28)
[2016-12-16] MEDS ORDERED: ATOR1TAB21 PO (08:28)
--- NOTE | 2016-12-16 17:56 | EDDOCDS ---
Physician Documentation [facility] Name: Alfredo Mario Age: 81 yrs Sex: Male : 1935 Arrival Date: 12/13/2016 Time: 12:17 Bed Admit Hold Private MD: NO PRIMARY PHYSICIAN, . Disposition: 12/13/16 19:53 Hospitalization ordered by Ricardo Zhang for Inpatient Admission. 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 - Bed requested for PCU. - Status is Inpatient Admission. [facility] - Condition is Stable. - Problem is new. - Symptoms are unchanged. Historical: - Allergies: No known drug Allergies; - Home Meds: 1. glucosamine-chondroitin oral oral twice a day 2. Fish Oil Oral twice a day - PMHx: none; - PSHx: polyp removed from nose; - Social history: Smoking status: Patient states former smoker of tobacco. No barriers to communication noted, The patient speaks fluent Portuguese, Speaks appropriately for age. - Family history: Not pertinent. - : The pt / caregiver states he / she is not on anticoagulants. Home medication list is obtained from the patient. - Exposure Risk Screening:: None identified. Vital Signs: 12/13 12:19 BP 158 / 81; Pulse 76; Resp 18 S; Temp 96.6(O); Pulse Ox 95% on R/A; Weight 71.67 kg / gr2 158.01 lbs (R); Height 5 ft. 11 in. (180.34 cm) (R); Pain 2/10; 12:28 BP 154 / 96 (auto/); kc3 12:29 Pulse 70 MON; Pulse Ox 97% ; kc3 12:56 BP 195 / 93 (auto/); kc3 12:57 Pulse 84 MON; Pulse Ox 95% ; kc3 13:11 BP 173 / 80 (auto/); kc3 13:12 Pulse 70 MON; Pulse Ox 95% ; kc3 13:26 BP 163 / 80 (auto/); kc3 13:27 Pulse 70 MON; Pulse Ox 94% ; kc3 13:41 BP 171 / 80 (auto/); kc3 13:42 Pulse 70 MON; Pulse Ox 95% ; kc3 13:56 BP 193 / 91 (auto/); kc3 13:56 Pulse 82 MON; Pulse Ox 96% ; kc3 14:03 BP 185 / 88 (auto/); kc3 14:03 Pulse 78 MON; Pulse Ox 96% ; kc3 14:11 BP 174 / 87 (auto/); kc3 14:12 Pulse 76 MON; Pulse Ox 95% ; kc3 14:26 BP 176 / 86 (auto/); kc3 14:27 Pulse 74 MON; Pulse Ox 95% ; kc3 14:41 BP 182 / 88 (auto/); kc3 14:41 Pulse 74 MON; Pulse Ox 94% ; kc3 14:56 BP 182 / 79 (auto/); kc3 14:56 Pulse 74 MON; Pulse Ox 95% ; kc3 15:11 BP 164 / 77 (auto/); kc3 15:11 Pulse 80 MON; Pulse Ox 96% ; kc3 15:22 BP 179 / 82 Supine; Pulse 93; Resp 18; Pulse Ox 95% on R/A; kc3 15:23 BP 176 / 85 Sitting; Pulse 91; Resp 18; Pulse Ox 97% on R/A; kc3 15:23 BP 157 / 77 Standing; Pulse 96; Resp 18; Pulse Ox 97% on R/A; kc3 15:26 BP 158 / 77 (auto/); kc3 15:27 Pulse 80 MON; Pulse Ox 93% ; kc3 15:41 BP 160 / 84 (auto/); kc3 15:42 Pulse 74 MON; Pulse Ox 95% ; kc3 15:56 BP 169 / 85 (auto/); kc3 15:56 Pulse 72 MON; Pulse Ox 95% ; kc3 16:11 BP 163 / 81 (auto/); kc3 16:11 Pulse 70 MON; Pulse Ox 95% ; kc3 16:26 BP 179 / 81 (auto/); kc3 16:26 Pulse 78 MON; Pulse Ox 95% ; kc3 16:41 BP 166 / 89 (auto/); kc3 16:42 Pulse 74 MON; Pulse Ox 95% ; kc3 16:56 BP 174 / 88 (auto/); kc3 16:57 Pulse 84 MON; Pulse Ox 96% ; kc3 17:11 BP 165 / 87 (auto/); kc3 17:12 Pulse 74 MON; Pulse Ox 96% ; kc3 17:26 BP 162 / 82 (auto/); kc3 17:27 Pulse 74 MON; Pulse Ox 95% ; kc3 19:11 BP 158 / 73 (auto/); 19:20 Pulse 82 MON; Pulse Ox 95% ; 19:26 BP 173 / 95 (auto/); oct 19:27 Pulse 76 MON; Pulse Ox 95% ; nov 14:56 BP 171 / 93 (auto/); nov 14:57 Pulse 80 MON; Pulse Ox 96% ; oct 20:11 BP 168 / 94 (auto/); oct 20:12 Pulse 76 MON; Pulse Ox 95% ; nov 15:41 BP 181 / 93 (auto/); nov 15:42 Pulse 76 MON; Pulse Ox 95% ; oct 12:19 Body Mass Index 22.04 (71.67 kg, 180.34 cm) gr2 15:23 Pt reports dizziness while sitting kc3 15:23 Pt reports dizziness kc3 MDM: 12:56 ECG WITH READING ER PHYS+CARDIAG ordered. EDMS 13:34 Altitude Chamber Technician/Pulse Ox/q 15 min VS ordered. fg 13:34 Accucheck ordered. fg 13:34 IV Saline Lock ordered. fg 13:34 Orthostatic VS ordered. fg 13:34 Rhythm Strip to chart ordered. fg 13:35 Chest, 1 View Ordered. EDMS 13:35 Basic Metabolic Profile Ordered. EDMS 13:35 CBC with Diff Ordered. EDMS 13:35 Urinalysis Ordered. EDMS 13:35 Urine Culture Ordered. EDMS 14:05 Fingerstick Blood Sugar Ordered. EDMS 14:50 Financial registration complete. mm15 14:50 [facility] Payment Agreement was scanned into Via6 and attached to record. mm15 14:53 Meclizine 25 mg PO once ordered. le 14:54 A1C Ordered. EDMS 14:54 CT Head Without Contrast Ordered. EDMS 14:55 Misc. Nursing Order ordered. le 15:01 CARDIAC INJURY PROFILE Ordered. EDMS 15:01 TROPONIN Ordered. EDMS 15:20 NS 0.9% 500 ml IV at bolus once ordered. le 15:20 Basic Metabolic Profile Reviewed. le 15:20 CBC with Diff Reviewed. le 15:20 Fingerstick Blood Sugar Reviewed. le 15:20 A1C Reviewed. le 15:20 Chest, 1 View Reviewed. le 15:23 TROPONIN Reviewed. le 16:44 Basic Metabolic Profile Reviewed. le 16:44 CARDIAC INJURY PROFILE Reviewed. le 16:44 CT Head Without Contrast Reviewed. le 16:50 MRI Screening Tool - Place on chart, inform RN ordered. le 16:51 -MRA-Brain without contrast Ordered. EDMS 16:52 -MRI-Brain without Ordered. EDMS 16:52 REGULAR+DIET ordered. EDMS 16:55 BED REQUEST+ADM ordered. EDMS 17:38 MRI Screening Tool - Place on chart, inform RN complete. lbd 18:41 MRA CAROTID W/O FOL WITH Ordered. EDMS 19:22 Aspirin 325 mg PO once ordered. le 19:22 Urinalysis Reviewed. le 19:45 COMPLETE BLOOD COUNT Ordered. EDMS 19:45 BASIC METABOLIC PROFILE Ordered. EDMS 19:46 PHYSICAL THERAPY EVAL & TREAT ordered. EDMS 19:46 Admission / Observation Status ordered. EDMS 19:47 ECHOCARD,DOPPLER/COLOR FLOW ordered. EDMS 20:35 CARDIAC RISK PROFILE Ordered. EDMS 02 14:55 T-Sheet-- Draft Copy was scanned into Via6 and attached to record. 02 11:31 ECG/EKG was scanned into Via6 and attached to record. Point of Care Testing: Blood Glucose: 12/13 13:59 Blood Glucose: 141 mg/dL; kc3 Ranges: Administered Medications: 15:22 Drug: Meclizine 25 mg [meclizine 12.5 mg tablet (2 tabs)] Route: PO; kc3 15:35 Drug: NS 0.9% 500 ml [sodium chloride 0.9 % intravenous solution] Route: IV; Rate: kc3 bolus; Site: left antecubital; 19:31 Drug: Aspirin 325 mg [aspirin 325 mg tablet (1 tabs)] Route: PO; js15 Signatures: Dispatcher [employer] EDWV Anjelica Castelan, Tmd Teacher Unit [facility] Camilla Rodriguez RN RN Kim Munguia, Reg Reg gb Priyanka Salas,RN RN ck1 Marlin Mendoza, ROSIE GOODWINP Michael Rose mm15 Queenie Christian MD MD fg Crane, Kelsi,RN RN kc3 Erika Carias RN js15 The chart was reviewed and I authenticate all verbal orders and agree with the evaluation and treatment provided.Corrections: (The following items were deleted from the chart) 15:01 14:56 TROPONIN+LAB ordered. EDWV EDMS 15:01 14:56 CARDIAC INJURY PROFILE+LAB ordered. EDMS EDMS 18:41 16:52 MRA-Carotid with contrast+MR ordered. EDMS EDMS 20:35 20:19 CARDIAC RISK PROFILE ordered. EDMS EDMS Attachments: 14:50 [facility] Payment Agreement mm15 12/14 14:55 T-Sheet-- Draft Copy gb 12/16 11:31 ECG/EKG Chart Complete MTDD
--- NOTE | 2016-12-16 17:56 | EDDOCDS ---
Physician Documentation [facility] Name: Alfredo Mario Age: 81 yrs Sex: Male : 1935 Arrival Date: 12/13/2016 Time: 12:17 Bed Admit Hold Private MD: NO PRIMARY PHYSICIAN, . Disposition: 12/13/16 19:53 Hospitalization ordered by Ricardo Zhang for Inpatient Admission. 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 - Bed requested for PCU. - Status is Inpatient Admission. [facility] - Condition is Stable. - Problem is new. - Symptoms are unchanged. Historical: - Allergies: No known drug Allergies; - Home Meds: 1. glucosamine-chondroitin oral oral twice a day 2. Fish Oil Oral twice a day - PMHx: none; - PSHx: polyp removed from nose; - Social history: Smoking status: Patient states former smoker of tobacco. No barriers to communication noted, The patient speaks fluent Nepali, Speaks appropriately for age. - Family history: Not pertinent. - : The pt / caregiver states he / she is not on anticoagulants. Home medication list is obtained from the patient. - Exposure Risk Screening:: None identified. Vital Signs: 12/13 12:19 BP 158 / 81; Pulse 76; Resp 18 S; Temp 96.6(O); Pulse Ox 95% on R/A; Weight 71.67 kg / gr2 158.01 lbs (R); Height 5 ft. 11 in. (180.34 cm) (R); Pain 2/10; 12:28 BP 154 / 96 (auto/); kc3 12:29 Pulse 70 MON; Pulse Ox 97% ; kc3 12:56 BP 195 / 93 (auto/); kc3 12:57 Pulse 84 MON; Pulse Ox 95% ; kc3 13:11 BP 173 / 80 (auto/); kc3 13:12 Pulse 70 MON; Pulse Ox 95% ; kc3 13:26 BP 163 / 80 (auto/); kc3 13:27 Pulse 70 MON; Pulse Ox 94% ; kc3 13:41 BP 171 / 80 (auto/); kc3 13:42 Pulse 70 MON; Pulse Ox 95% ; kc3 13:56 BP 193 / 91 (auto/); kc3 13:56 Pulse 82 MON; Pulse Ox 96% ; kc3 14:03 BP 185 / 88 (auto/); kc3 14:03 Pulse 78 MON; Pulse Ox 96% ; kc3 14:11 BP 174 / 87 (auto/); kc3 14:12 Pulse 76 MON; Pulse Ox 95% ; kc3 14:26 BP 176 / 86 (auto/); kc3 14:27 Pulse 74 MON; Pulse Ox 95% ; kc3 14:41 BP 182 / 88 (auto/); kc3 14:41 Pulse 74 MON; Pulse Ox 94% ; kc3 14:56 BP 182 / 79 (auto/); kc3 14:56 Pulse 74 MON; Pulse Ox 95% ; kc3 15:11 BP 164 / 77 (auto/); kc3 15:11 Pulse 80 MON; Pulse Ox 96% ; kc3 15:22 BP 179 / 82 Supine; Pulse 93; Resp 18; Pulse Ox 95% on R/A; kc3 15:23 BP 176 / 85 Sitting; Pulse 91; Resp 18; Pulse Ox 97% on R/A; kc3 15:23 BP 157 / 77 Standing; Pulse 96; Resp 18; Pulse Ox 97% on R/A; kc3 15:26 BP 158 / 77 (auto/); kc3 15:27 Pulse 80 MON; Pulse Ox 93% ; kc3 15:41 BP 160 / 84 (auto/); kc3 15:42 Pulse 74 MON; Pulse Ox 95% ; kc3 15:56 BP 169 / 85 (auto/); kc3 15:56 Pulse 72 MON; Pulse Ox 95% ; kc3 16:11 BP 163 / 81 (auto/); kc3 16:11 Pulse 70 MON; Pulse Ox 95% ; kc3 16:26 BP 179 / 81 (auto/); kc3 16:26 Pulse 78 MON; Pulse Ox 95% ; kc3 16:41 BP 166 / 89 (auto/); kc3 16:42 Pulse 74 MON; Pulse Ox 95% ; kc3 16:56 BP 174 / 88 (auto/); kc3 16:57 Pulse 84 MON; Pulse Ox 96% ; kc3 17:11 BP 165 / 87 (auto/); kc3 17:12 Pulse 74 MON; Pulse Ox 96% ; kc3 17:26 BP 162 / 82 (auto/); kc3 17:27 Pulse 74 MON; Pulse Ox 95% ; kc3 19:11 BP 158 / 73 (auto/); 19:20 Pulse 82 MON; Pulse Ox 95% ; 19:26 BP 173 / 95 (auto/); oct 19:27 Pulse 76 MON; Pulse Ox 95% ; nov 14:56 BP 171 / 93 (auto/); nov 14:57 Pulse 80 MON; Pulse Ox 96% ; oct 20:11 BP 168 / 94 (auto/); oct 20:12 Pulse 76 MON; Pulse Ox 95% ; nov 15:41 BP 181 / 93 (auto/); nov 15:42 Pulse 76 MON; Pulse Ox 95% ; oct 12:19 Body Mass Index 22.04 (71.67 kg, 180.34 cm) gr2 15:23 Pt reports dizziness while sitting kc3 15:23 Pt reports dizziness kc3 MDM: 12:56 ECG WITH READING ER PHYS+CARDIAG ordered. 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 fg 13:34 Accucheck ordered. fg 13:34 IV Saline Lock ordered. fg 13:34 Orthostatic VS ordered. fg 13:34 Rhythm Strip to chart ordered. fg 13:35 Chest, 1 View Ordered. EDMS 13:35 Basic Metabolic Profile Ordered. EDMS 13:35 CBC with Diff Ordered. EDMS 13:35 Urinalysis Ordered. EDMS 13:35 Urine Culture Ordered. EDMS 14:05 Fingerstick Blood Sugar Ordered. EDMS 14:50 Financial registration complete. mm15 14:50 [facility] Payment Agreement was scanned into Workables and attached to record. mm15 14:53 Meclizine 25 mg PO once ordered. le 14:54 A1C Ordered. EDMS 14:54 CT Head Without Contrast Ordered. EDMS 14:55 Misc. Nursing Order ordered. le 15:01 CARDIAC INJURY PROFILE Ordered. EDMS 15:01 TROPONIN Ordered. EDMS 15:20 NS 0.9% 500 ml IV at bolus once ordered. le 15:20 Basic Metabolic Profile Reviewed. le 15:20 CBC with Diff Reviewed. le 15:20 Fingerstick Blood Sugar Reviewed. le 15:20 A1C Reviewed. le 15:20 Chest, 1 View Reviewed. le 15:23 TROPONIN Reviewed. le 16:44 Basic Metabolic Profile Reviewed. le 16:44 CARDIAC INJURY PROFILE Reviewed. le 16:44 CT Head Without Contrast Reviewed. le 16:50 MRI Screening Tool - Place on chart, inform RN ordered. le 16:51 -MRA-Brain without contrast Ordered. EDMS 16:52 -MRI-Brain without Ordered. EDMS 16:52 REGULAR+DIET ordered. EDMS 16:55 BED REQUEST+ADM ordered. EDMS 17:38 MRI Screening Tool - Place on chart, inform RN complete. lbd 18:41 MRA CAROTID W/O FOL WITH Ordered. EDMS 19:22 Aspirin 325 mg PO once ordered. le 19:22 Urinalysis Reviewed. le 19:45 COMPLETE BLOOD COUNT Ordered. EDMS 19:45 BASIC METABOLIC PROFILE Ordered. EDMS 19:46 PHYSICAL THERAPY EVAL & TREAT ordered. EDMS 19:46 Admission / Observation Status ordered. EDMS 19:47 ECHOCARD,DOPPLER/COLOR FLOW ordered. EDMS 20:35 CARDIAC RISK PROFILE Ordered. EDMS 02 14:55 T-Sheet-- Draft Copy was scanned into Workables and attached to record. 02 11:31 ECG/EKG was scanned into Work[employer] and attached to record. Point of Care Testing: Blood Glucose: 12/13 13:59 Blood Glucose: 141 mg/dL; kc3 Ranges: Administered Medications: 15:22 Drug: Meclizine 25 mg [meclizine 12.5 mg tablet (2 tabs)] Route: PO; kc3 15:35 Drug: NS 0.9% 500 ml [sodium chloride 0.9 % intravenous solution] Route: IV; Rate: kc3 bolus; Site: left antecubital; 19:31 Drug: Aspirin 325 mg [aspirin 325 mg tablet (1 tabs)] Route: PO; [id number] Signatures: Dispatcher [employer] EDCT Anjelica Castelan, [employer] Est[employer]ator [employer] [facility] Camilla Rodriguez RN RN Kim Munguia, Reg Reg gb Priyanka Salas,RN RN ck1 Marlin Mendoza, ROSIE GOODWINP Michael Rose mm15 Queenie Christian MD MD fg Crane, Kelsi,RN RN kc3 Erika Carias RN [id number] The chart was reviewed and I authenticate all verbal orders and agree with the evaluation and treatment provided.Corrections: (The following items were deleted from the chart) 15:01 14:56 TROPONIN+LAB ordered. EDCT EDMS 15:01 14:56 CARDIAC INJURY PROFILE+LAB ordered. EDMS EDMS 18:41 16:52 MRA-Carotid with contrast+MR ordered. EDMS EDMS 20:35 20:19 CARDIAC RISK PROFILE ordered. EDMS EDMS Attachments: 14:50 [facility] [place] [facility] Payment Agreement mm15 12/14 14:55 T-Sheet-- Draft Copy gb 12/16 11:31 ECG/EKG Chart Complete MTDD
--- NOTE | 2016-12-16 17:57 | EDDOCDS ---
Nurse's Notes [facility] Name: Alfredo Mina Age: 81 yrs Sex: Male : 1935 Arrival Date: 12/13/2016 Time: 12:17 Bed Admit Hold Private MD: NO PRIMARY PHYSICIAN, . 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 Adult Sepsis Screening: The patient does not have new or worsening altered mentation. Patient's respiratory rate is less than 22. Systolic blood pressure is greater than 100. Patient has a qSOFA score of 0- Negative Sepsis Screen. Suicide/Homicide risk assessment- the patient denies having any suicidal and/or homicidal ideations and does not present with any other emotional, behavioral or mental health complaints. Status: Patient is not a senior administrative services officer or dependent. Transition of care: patient was received from a primary care office; [facility]. 12:22 Method Of Arrival: Wheelchair ck1 12:22 Acuity: LIBRADO Level 3 ck1 Triage Assessment: 12:25 General: Appears in no apparent distress, comfortable, Behavior is appropriate for age, ck1 cooperative. Pain: Denies pain. Neurological: Level of Consciousness is awake, alert, obeys commands, Oriented to person, place, time, Reports dizziness. Respiratory: Respiratory effort is unlabored, Respiratory pattern is regular, symmetrical. GI: Denies nausea, vomiting. Derm: Skin is intact, Skin is pink, warm & dry. Musculoskeletal: Circulation, motion, and sensation intact Range of motion intact in all extremities. Historical: - Allergies: No known drug Allergies; - Home Meds: 1. glucosamine-chondroitin oral oral twice a day 2. Fish Oil Oral twice a day - PMHx: none; - PSHx: polyp removed from nose; - Social history: Smoking status: Patient states former smoker of tobacco. No barriers to communication noted, The patient speaks fluent Northern Irish, Speaks appropriately for age. - Family history: Not pertinent. - : The pt / caregiver states he / she is not on anticoagulants. Home medication list is obtained from the patient. - Exposure Risk Screening:: None identified. Screenin:57 Screening information is obtained from the patient. Fall risk: At risk due to kc3 dizziness. The following interventions are performed due to a positive Fall Risk Screen: Fall Risk is added to Special Handling on the patient Summary Screen. A Fall Risk Bracelet was applied to the patient. Side Rails are placed in the up position. A Call [place] is given with instruction to call for help when getting out of bed. Fall Alert bracelet is placed on the patient. Assistance ADL's: requires no assistance with activities of daily living. Abuse/DV Screen: The patient / caregiver reports he/she is: not in a situation that causes fear, pain or injury. Nutritional screening: No deficits noted. Advance Directives: Currently, there is no health care proxy. home support is adequate. Assessment: 12:56 General: Appears in no apparent distress, comfortable, Behavior is appropriate for age, kc3 cooperative. Pain: Denies pain. Neurological: Level of Consciousness is awake, alert, obeys commands, Oriented to person, place, time, Reports dizziness. Cardiovascular: Rhythm is regular. Respiratory: Airway is patent Respiratory effort is even, unlabored. Derm: Skin is pink, warm & dry. Musculoskeletal: Circulation, motion, and sensation intact. 13:50 General: Appears in no apparent distress, comfortable, Behavior is appropriate for age, kc3 cooperative. Pain: Denies pain. Neurological: Level of Consciousness is awake, alert, obeys commands, Oriented to person, place, time, Reports dizziness. Cardiovascular: Rhythm is regular. Respiratory: Respiratory effort is even, unlabored. Derm: Skin is pink, warm & dry. 14:30 General: Appears in no apparent distress, comfortable, Behavior is appropriate for age, kc3 cooperative. Pain: Denies pain. Neurological: Reports dizziness. Cardiovascular: Rhythm is sinus rhythm. Respiratory: Respiratory effort is even, unlabored. Derm: Skin is pink, warm & dry. 15:25 General: Appears in no apparent distress, comfortable, Behavior is appropriate for age, kc3 cooperative. Pain: Denies pain. Neurological: Level of Consciousness is awake, alert, obeys commands, Reports dizziness. Cardiovascular: Rhythm is sinus rhythm. Respiratory: Respiratory effort is even, unlabored. Derm: Skin is pink, warm & dry. 16:00 General: Appears in no apparent distress, comfortable, Behavior is appropriate for age, kc3 cooperative. Pain: Denies pain. Neurological: Level of Consciousness is awake, alert, obeys commands, Reports dizziness. Cardiovascular: Rhythm is sinus rhythm. Respiratory: Airway is patent Respiratory effort is even, unlabored. Derm: Skin is pink, warm & dry. Musculoskeletal: Circulation, motion, and sensation intact. 17:00 General: Appears in no apparent distress, comfortable, Behavior is appropriate for age, kc3 cooperative. Pain: Denies pain. Neurological: Level of Consciousness is awake, alert, obeys commands, Oriented to person, place, time. Cardiovascular: Rhythm is sinus rhythm. Respiratory: Airway is patent Respiratory effort is even, unlabored, Respiratory pattern is regular, symmetrical. Derm: Skin is pink, warm & dry. 17:45 General: Pt transported to MRI. . kc3 19:21 General: Appears in no apparent distress, comfortable, Behavior is appropriate for age, js15 cooperative. Pain: Denies pain. Neurological: Level of Consciousness is awake, alert, obeys commands, Oriented to person, place, time. Cardiovascular: Rhythm is regular. Respiratory: Airway is patent Respiratory effort is even, unlabored, Respiratory pattern is regular, symmetrical. Derm: Skin is pink, warm & dry. Vital Signs: 12:19 BP 158 / 81; Pulse 76; Resp 18 S; Temp 96.6(O); Pulse Ox 95% on R/A; Weight 71.67 kg gr2 (R); Height 5 ft. 11 in. (180.34 cm) (R); Pain 2/10; 12:28 BP 154 / 96 (auto/); kc3 12:29 Pulse 70 MON; Pulse Ox 97% ; kc3 12:56 BP 195 / 93 (auto/); kc3 12:57 Pulse 84 MON; Pulse Ox 95% ; kc3 13:11 BP 173 / 80 (auto/); kc3 13:12 Pulse 70 MON; Pulse Ox 95% ; kc3 13:26 BP 163 / 80 (auto/); kc3 13:27 Pulse 70 MON; Pulse Ox 94% ; kc3 13:41 BP 171 / 80 (auto/); kc3 13:42 Pulse 70 MON; Pulse Ox 95% ; kc3 13:56 BP 193 / 91 (auto/); kc3 13:56 Pulse 82 MON; Pulse Ox 96% ; kc3 14:03 BP 185 / 88 (auto/); kc3 14:03 Pulse 78 MON; Pulse Ox 96% ; kc3 14:11 BP 174 / 87 (auto/); kc3 14:12 Pulse 76 MON; Pulse Ox 95% ; kc3 14:26 BP 176 / 86 (auto/); kc3 14:27 Pulse 74 MON; Pulse Ox 95% ; kc3 14:41 BP 182 / 88 (auto/); kc3 14:41 Pulse 74 MON; Pulse Ox 94% ; kc3 14:56 BP 182 / 79 (auto/); kc3 14:56 Pulse 74 MON; Pulse Ox 95% ; kc3 15:11 BP 164 / 77 (auto/); kc3 15:11 Pulse 80 MON; Pulse Ox 96% ; kc3 15:22 BP 179 / 82 Supine; Pulse 93; Resp 18; Pulse Ox 95% on R/A; kc3 15:23 BP 176 / 85 Sitting; Pulse 91; Resp 18; Pulse Ox 97% on R/A; kc3 15:23 BP 157 / 77 Standing; Pulse 96; Resp 18; Pulse Ox 97% on R/A; kc3 15:26 BP 158 / 77 (auto/); kc3 15:27 Pulse 80 MON; Pulse Ox 93% ; kc3 15:41 BP 160 / 84 (auto/); kc3 15:42 Pulse 74 MON; Pulse Ox 95% ; kc3 15:56 BP 169 / 85 (auto/); kc3 15:56 Pulse 72 MON; Pulse Ox 95% ; kc3 16:11 BP 163 / 81 (auto/); kc3 16:11 Pulse 70 MON; Pulse Ox 95% ; kc3 16:26 BP 179 / 81 (auto/); kc3 16:26 Pulse 78 MON; Pulse Ox 95% ; kc3 16:41 BP 166 / 89 (auto/); kc3 16:42 Pulse 74 MON; Pulse Ox 95% ; kc3 16:56 BP 174 / 88 (auto/); kc3 16:57 Pulse 84 MON; Pulse Ox 96% ; kc3 17:11 BP 165 / 87 (auto/); kc3 17:12 Pulse 74 MON; Pulse Ox 96% ; kc3 17:26 BP 162 / 82 (auto/); kc3 17:27 Pulse 74 MON; Pulse Ox 95% ; kc3 19:11 BP 158 / 73 (auto/); js15 19:20 Pulse 82 MON; Pulse Ox 95% ; js15 19:26 BP 173 / 95 (auto/); oct 19:27 Pulse 76 MON; Pulse Ox 95% ; oct 19:56 BP 171 / 93 (auto/); nov 14:57 Pulse 80 MON; Pulse Ox 96% ; oct 20:11 BP 168 / 94 (auto/); oct 20:12 Pulse 76 MON; Pulse Ox 95% ; oct 20:41 BP 181 / 93 (auto/); nov 15:42 Pulse 76 MON; Pulse Ox 95% ; oct 12:19 Body Mass Index 22.04 (71.67 kg, 180.34 cm) gr2 15:23 Pt reports dizziness while sitting kc3 15:23 Pt reports dizziness kc3 Vitals: 12:19 Log In Time: December 13, 2016 at 12:19. gr2 ED Course: 12:18 Patient visited by Lorena Fuentes. gr2 12:18 NO PRIMARY PHYSICIAN, . is Private Physician. gr2 12:18 Patient moved to Waiting gr2 12:21 Patient visited by Lorena Fuentes. gr2 12:21 Patient moved to Pre RCE gr2 12:24 Triage Initiated ck1 12:50 Yesi Pizarro,RN is Primary Nurse. jjr 12:50 Patient moved to 15 jjr 12:55 Patient visited by Yesi Pizarro,FELIPE. kc3 12:57 The patient / caregiver is instructed regarding the plan of care and ED course. kc3 13:00 EKG done. (by ED staff). Reviewed by Queenie Christian MD. dem1 13:01 Patient visited by Francois Sandoval. dem1 13:41 Patient visited by Yesi Pizarro,FELIPE. kc3 13:52 Marlin Mendoza FNP is PHCP. le 13:55 Patient visited by Marlin Mendoza FNP. le 13:55 Patient visited by Marlin Mendoza FNP. le 13:58 Basic Metabolic Profile Sent. kc3 13:58 CBC with Diff Sent. kc3 13:59 Inserted saline lock: 20 gauge in left antecubital area and blood collected. The kc3 patient tolerated the procedure well. 14:27 Chest, 1 View Returned. EDMS 14:50 [facility] [place] was scanned into [employer] and attached to record. mm15 14:57 Patient visited by Tracy Colindres PCA. ct3 15:34 Patient visited by Yesi Pizarro RN. kc3 16:05 Patient visited by Yesi Pizarro RN. kc3 16:16 CT Head Without Contrast Returned. EDMS 16:36 Patient visited by Yesi Pizarro RN. kc3 16:46 Urinalysis Sent. kc3 16:46 Urine Culture Sent. kc3 16:51 Patient visited by Marlin Mendoza FNP. le 17:35 Patient visited by Yesi Pizarro RN. kc3 18:09 Patient visited by Yesi Pizarro RN. kc3 18:09 Patient moved to MRI kc3 19:13 Patient moved to 15 ml3 19:20 Patient visited by Erika Carias RN. js15 19:53 Ricardo Zhang DO is Hospitalizing Provider. le 19:53 Patient moved to Admit Hold ml3 20:03 EKG-ADULT Returned. EDMS 20:09 -MRA-Brain without contrast Returned. EDMS 20:09 -MRI-Brain without Returned. EDMS 20:09 MRA CAROTID W/O FOL WITH Returned. EDMS 20:51 Patient moved to Oct 21:18 Patient moved to Admit Hold ml3 22:37 Primary Nurse role handed off by Yesi Pizarro RN [email or web address] 12/14 14:55 T-Sheet-- Draft Copy was scanned into [employer] and attached to record. gb 12/16 11:31 ECG/EKG was scanned into [employer] and attached to record. gb Administered Medications: 12/13 15:22 Drug: Meclizine 25 mg [meclizine 12.5 mg tablet (2 tabs)] Route: PO; kc3 15:35 Drug: NS 0.9% 500 ml [sodium chloride 0.9 % intravenous solution] Route: IV; Rate: kc3 bolus; Site: left antecubital; 19:31 Drug: Aspirin 325 mg [aspirin 325 mg tablet (1 tabs)] Route: PO; js15 Point of Care Testing: Blood Glucose: 13:59 Blood Glucose: 141 mg/dL; kc3 Ranges: Order Results: Lab Order: Basic Metabolic Profile; SPEC'M 12/13/16 13:55 Test: GLUCOSE, FASTING; Value: 157; Range: 83-110; Abnormal: Above high normal; Units: MG/DL; Status: F Test: BLOOD UREA NITROGEN; Value: 21; Range: 7-18; Abnormal: Above high normal; Units: MG/DL; Status: F Test: CREATININE FOR GFR; Value: 1.06; Range: 0.70-1.30; Units: MG/DL; Status: F Test: GLOMERULAR FILTRATION RATE; Value: > 60.0; Range: >35; Status: F Test: SODIUM LEVEL; Value: 139; Range: 136-145; Units: MEQ/L; Status: F Test: POTASSIUM SERUM; Value: 4.4; Range: 3.5-5.1; Units: MEQ/L; Status: F Test: CHLORIDE LEVEL; Value: 101; Range: 98-107; Units: MEQ/L; Status: F Test: CARBON DIOXIDE LEVEL; Value: 29; Range: 21-32; Units: MEQ/L; Status: F Test: ANION GAP; Value: 9; Range: 8-16; Units: MEQ/L; Status: F Test: CALCIUM LEVEL; Value: 9.4; Range: 8.8-10.2; Units: MG/DL; Status: F Test Note: ; Units are mL/min/1.73 m2 Chronic Kidney Disease Staging per NKF: Stage I & II GFR >=60 Normal to Mildly Decreased Stage III GFR 30-59 Moderately Decreased Stage IV GFR 15-29 Severely Decreased Stage V GFR <15 Very Little GFR Left ESRD 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 Lab Order: CBC with Diff; SPEC'M 12/13/16 13:55 Test: WHITE BLOOD COUNT; Value: 8.0; Range: 4.0-10.0; Units: K/mm3; Status: F Test: RED BLOOD COUNT; Value: 4.89; Range: 4.30-6.10; Units: M/mm3; Status: F Test: HEMOGLOBIN; Value: 14.9; Range: 14.0-18.0; Units: g/dl; Status: F Test: HEMATOCRIT; Value: 44.3; Range: 42.0-52.0; Units: %; Status: F Test: MEAN CORPUSCULAR VOLUME; Value: 90.5; Range: 80.0-96.0; Units: fl; Status: F Test: MEAN CORPUSCULAR HEMOGLOBIN; Value: 30.5; Range: 27.0-33.0; Units: pg; Status: F Test: MEAN CORPUSCULAR HGB CONC; Value: 33.7; Range: 32.0-36.5; Units: g/dl; Status: F Test: RED CELL DISTRIBUTION WIDTH; Value: 12.6; Range: 11.5-14.5; Units: %; Status: F Test: PLATELET COUNT, AUTOMATED; Value: 235; Range: 150-450; Units: k/mm3; Status: F Test: NEUTROPHILS %; Value: 74.4; Range: 36.0-66.0; Abnormal: Above high normal; Units: %; Status: F Test: LYMPH %; Value: 16.1; Range: 24.0-44.0; Abnormal: Below low normal; Units: %; Status: F Test: MONO %; Value: 5.4; Range: 0.0-5.0; Abnormal: Above high normal; Units: %; Status: F Test: EOS %; Value: 1.5; Range: 0.0-3.0; Units: %; Status: F Test: BASO %; Value: 0.7; Range: 0.0-1.0; Units: %; Status: F Test: LARGE UNSTAINED CELL %; Value: 2.0; Range: 0.0-4.0; Units: %; Status: F Test: NEUTROPHILS #; Value: 6.0; Range: 1.8-7.7; Units: K/mm3; Status: F Test: LYMPH #; Value: 1.3; Range: 1.5-4.5; Abnormal: Below low normal; Units: K/mm3; Status: F Test: MONO #; Value: 0.4; Range: 0.0-0.8; Units: K/mm3; Status: F Test: EOS #; Value: 0.1; Range: 0.0-0.50; Units: K/mm3; Status: F Test: BASO #; Value: 0.0; Range: 0.0-0.2; Units: K/mm3; Status: F Test: LARGE UNSTAINED CELL #; Value: 0.2; Range: 0.0-0.4; Units: K/mm3; Status: F Lab Order: Urinalysis; SPEC'M 12/13/16 13:55 Test: APPEARANCE, URINE; Value: CLEAR; Range: CLEAR; Status: F Test: COLOR, URINE; Value: YELLOW; Range: YELLOW; Status: F Test: PH,URINE; Value: 5.0; Range: 5.0-9.0; Units: UNITS; Status: F Test: SPECIFIC GRAVITY URINE AUTO; Value: 1.017; Range: 1.002-1.035; Status: F Test: PROTEIN, URINE AUTO; Value: NEGATIVE; Range: NEGATIVE; Units: mg/dL; Status: F Test: GLUCOSE, URINE (UA) AUTO; Value: NEGATIVE; Range: NEGATIVE; Units: mg/dL; Status: F Test: KETONE, URINE AUTO; Value: NEGATIVE; Range: NEGATIVE; Units: mg/dL; Status: F Test: UROBILINOGEN, URINE AUTO; Value: 0.2; Range: 0.0-2.0; Units: mg/dL; Status: F Test: BILIRUBIN, URINE AUTO; Value: NEGATIVE; Range: NEGATIVE; Status: F Test: NITRITE, URINE AUTO; Value: NEGATIVE; Range: NEGATIVE; Status: F Test: LEUKOCYTE ESTERASE, URINE AUTO; Value: NEGATIVE; Range: NEGATIVE; Status: F Test: BLOOD, URINE BLOOD; Value: NEGATIVE; Range: NEGATIVE; Status: F Test: WBC, URINE AUTO; Value: 1; Range: 0-3; Units: /HPF; Status: F Test: RBC, URINE AUTO; Value: 2; Range: 0-3; Units: /HPF; Status: F Test: BACTERIA, URINE AUTO; Value: NEGATIVE; Range: NEGATIVE; Status: F Test: SQUAMOUS EPITHELIAL CELL UR AU; Value: 0; Range: 0-6; Units: /HPF; Status: F Test: MUCUS, URINE; Value: SMALL; Range: NEGATIVE; Status: F Test: HYALINE CAST, URINE AUTO; Value: 0; Range: 0-1; Units: /LPF; Status: F Test: AMORPHOUS SEDIMENT; Value: SMALL; Range: NEGATIVE; Abnormal: Above high normal; Status: F Lab Order: Fingerstick Blood Sugar; SPEC'M 12/13/16 13:53 Test: BEDSIDE GLUCOSE; Value: 141; Range: 83-110; Abnormal: Above high normal; Units: MG/DL; Status: F Lab Order: A1C; SPEC'M 12/13/16 13:55 Test: HEMOGLOBIN A1c; Value: 6.1; Range: 4.5-6.2; Units: %; Status: F Test: ESTIMATED AVERAGE GLUCOSE; Value: 128; Range: 60-110; Abnormal: Above high normal; Units: MG/DL; Status: F Lab Order: CARDIAC INJURY PROFILE; [facility] 12/13/16 13:55 Test: CPK CREATINE PHOSPHOKINASE; Value: 100; Range: 39-308; Units: U/L; Status: F Test: CK-MB VALUE MASS; Value: 2.2; Range: 0.0-3.6; Units: NG/ML; Status: F Test: MB/CK RELATIVE INDEX; Value: 2.20; Range: < OR =4; Status: F Test Note: ; DIAGNOSIS CRITERIA MMB ng/ml Relative Index (RI) NON-AMI < or = 5 N/A CARR ZONE > 5 < or = 4 AMI > 5 > 4 Lab Order: TROPONIN; [facility] 12/13/16 13:55 Test: TROPONIN I; Value: < 0.02; Range: < 0.10; Units: NG/ML; Status: F Test Note: ; Troponin I Reference Interval for [employer] LOCI: 99th Percentile= 0.00-0.045 ng/ml Risk Stratification: <= 0.10 ng/ml Decreased Risk for Adverse Clinical Events. 0.10-1.50 ng/ml Increased Risk for Adverse Clinical Events. Evaluation of additional criterion and/or repeat testing in 2-6 hours is suggested to rule out myocardial damage. >= 1.50 ng/ml Indicative of Myocardial Injury. Lab Order: COMPLETE BLOOD COUNT; [facility] 12/14/16 06:12 Test: WHITE BLOOD COUNT; Value: 9.6; Range: 4.0-10.0; Units: K/mm3; Status: F Test: RED BLOOD COUNT; Value: 4.54; Range: 4.30-6.10; Units: M/mm3; Status: F Test: HEMOGLOBIN; Value: 14.3; Range: 14.0-18.0; Units: g/dl; Status: F Test: HEMATOCRIT; Value: 41.4; Range: 42.0-52.0; Abnormal: Below low normal; Units: %; Status: F Test: MEAN CORPUSCULAR VOLUME; Value: 91.1; Range: 80.0-96.0; Units: fl; Status: F Test: MEAN CORPUSCULAR HEMOGLOBIN; Value: 31.4; Range: 27.0-33.0; Units: pg; Status: F Test: MEAN CORPUSCULAR HGB CONC; Value: 34.5; Range: 32.0-36.5; Units: g/dl; Status: F Test: RED CELL DISTRIBUTION WIDTH; Value: 12.8; Range: 11.5-14.5; Units: %; Status: F Test: PLATELET COUNT, AUTOMATED; Value: 222; Range: 150-450; Units: k/mm3; Status: F Lab Order: [facility] METABOLIC PROFILE[facility] Test: GLUCOSE, FASTING; Value: 106; Range: 83-110; Units: MG/DL; Status: F Test: BLOOD UREA NITROGEN; Value: 16; Range: 7-18; Units: MG/DL; Status: F Test: CREATININE FOR GFR; Value: 1.03; Range: 0.70-1.30; Units: MG/DL; Status: F Test: GLOMERULAR FILTRATION RATE; Value: > 60.0; Range: >35; Status: F Test: SODIUM LEVEL; Value: 142; Range: 136-145; Units: MEQ/L; Status: F Test: POTASSIUM SERUM; Value: 4.0; Range: 3.5-5.1; Units: MEQ/L; Status: F Test: CHLORIDE LEVEL; Value: 106; Range: 98-107; Units: MEQ/L; Status: F Test: CARBON DIOXIDE LEVEL; Value: 28; Range: 21-32; Units: MEQ/L; Status: F Test: ANION GAP; Value: 8; Range: 8-16; Units: MEQ/L; Status: F Test: CALCIUM LEVEL; Value: 8.7; Range: 8.8-10.2; Abnormal: Below low normal; Units: MG/DL; Status: F Test Note: ; Units are mL/min/1.73 m2 Chronic Kidney Disease Staging per NKF: Stage I & II GFR >=60 Normal to Mildly Decreased Stage III GFR 30-59 Moderately Decreased Stage IV GFR 15-29 Severely Decreased Stage V GFR <15 Very Little GFR Left ESRD 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 Lab Order: CARDIAC RISK PROFILE; SPEC'M 12/14/16 06:12 Test: TRIGLYCERIDES LEVEL; Value: 141; Range: <150; Units: MG/DL; Status: F Test: CHOLESTEROL LEVEL; Value: 209; Range: <200; Abnormal: Above high normal; Units: MG/DL; Status: F Test: HDL CHOLESTEROL; Value: 38; Range: >40; Abnormal: Below low normal; Units: MG/DL; Status: F Test: LDL CHOLESTEROL; Value: 142.8; Range: <100; Abnormal: Above high normal; Units: MG/DL; Status: F Test: NON-HDL-C; Value: 171; Units: MG/DL; Status: F Test: CHOLESTEROL RISK RATIO; Value: 5.500; Range: <5; Abnormal: Above high normal; Status: F Radiology Order: EKG-ADULT Test: EKG-ADULT REASON FOR EXAMINATION: dizziness; Stationary ECG Study; [facility] - ED; ; Test Date: 2016-12-13; Pat Name: ALFREDO MINA Department:; Room: -; Gender: M 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 The heart is normal in size. The pulmonary vasculature is; normal in appearance.; ; Impression: No acute disease.; ; ; Signed by; Kit Rick MD 12/13/2016 02:08 P; Radiology Order: CT Head Without Contrast Test: CT Head Without Contrast REASON FOR EXAMINATION: dizziness; CT HEAD WITHOUT CONTRAST:; ; HISTORY: Dizziness.; ; Areas of decreased attenuation are present in the periventricular white matter.; This represents small vessel ischemic disease. A small focus of decreased; attenuation is present in the right cerebellum. This represents and old lacunar; infarction. A small area of decreased attenuation is present in the posteromedial; left cerebellum. This may represent a infarction of indeterminate age versus; volume averaging with the horizontal fissure. There is no intraparenchymal; hemorrhage, mass or midline shift. The ventricular system and cortical sulci are; dilated consistent with mild volume loss. There is no extracerebral collection.; Minimal mucosal thickening is present in the right mastoid air cells. The; visualized sinuses are clear.; ; IMPRESSION:; ; 1. Small vessel ischemic disease.; ; 2. 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 Possible small left cerebellar infarction versus volume averaging with the; horizontal fissure.; ; 4. Mild volume loss. MR may be helpful for further evaluation.; ; ; Signed by; Kit Rick MD 12/13/2016 03:48 P; Radiology Order: -MRA-Brain without contrast Test: -MRA-Brain without contrast REASON FOR EXAMINATION: possible cerebellar infarct; ; CLINICAL HISTORY: Dizziness.; TECHNIQUE: Three dimensional [id number] angiography is performed of the [place]. The [place]; dy was performed without IV contrast agent.; FINDINGS: The supraclinoid portions of the internal carotid arteries are of normal shape. The normal; bifurcation is seen. The middle cerebral arteries are unremarkable in appearance. The posterior circu; lation is visualized and shows no evidence of occlusion or aneurysm formation. The basilar tip is see; n and shows no aneurysm formation. There is no evidence of beading to suggest vasculitis.; IMPRESSION:; MRA of the [place] is within normal limits.; Thank you for your kind referral of this patient.; ; Radiology Order: -MRI-Brain without Test: -MRI-Brain without REASON FOR EXAMINATION: poss cerebellar infarct; ; CLINICAL HISTORY: Dizziness; TECHNIQUE: MRI of the brain was performed without administration of intravenous contrast material. T1; spine echo, T2 fast spin echo, DWI and FLAIR sequences were obtained in sagittal, axial and coronal; planes.; FINDINGS:; Note is made of focal area of restricted diffusion involving medial aspect of hemispheric left cerebe; llar compatible with acute infarct.; The sella and parasellar regions are unremarkable in appearance. The corpus callosum and cerebellar t; onsils are of normal configuration and position. There are no intra or extra-axial collections. There; is no mass effect or midline shift. There is no evidence of hematoma formation. There is no hydrocep; halus.; The brain stem shows no mass effects, infarcts or hemorrhage. There are no cerebellopontine tumors. T; he acoustic nerves are symmetrical. No cerebellar intra-axial pathology delineated. The fourth ventri; claire and aqueduct are normal. No abnormalities of the optic nerves are identified. No dural or subdura; l masses or collections are detected.; There is evidence for generalized symmetrical dilatation of the ventricles and cortical sulci consist; ent with parenchymal atrophy.; There are bilateral periventricular and subcortical T2 and FLAIR hyperintensities extending into cent; [place] compatible with severe chronic white matter ischemic disease.; The visualized arterial structures demonstrate normal appearing flow voids. The VII and VIII nerve bu; ndles are visualized and are unremarkable in appearance.; Mucosal thickening is seen involving bilateral ethmoid and maxillary sinuses compatible with chronic; sinusitis.; IMPRESSION:; 1. Generalized age-appropriate parenchymal atrophy.; 2. Bilateral periventricular and subcortical white matter severe chronic ischemic changes.; 3. Chronic ethmoid and maxillary sinusitis.; 4. Acute left cerebellar infarct.; Results were reported to MARLIN FARMER; ; ; Radiology Order: MRA CAROTID W/O FOL WITH Test: MRA CAROTID W/O FOL WITH REASON FOR EXAMINATION: possible cerebellar infarct; ; HISTORY: Dizziness.; TECHNIQUE: resonance angiography of the neck was performed at 1.5T with 2-D axial [id number] imag; es. During the dynamic injection of gadolinium contrast material intravenously coronal 3D time-of-fli; ght MRA of the neck was performed. All images are retrospectively targeted and reformatted in three d; imensions according to standard protocol. Motion degraded study.; FINDINGS: NECK -; There is normal anatomy. The right vertebral artery is dominant. No flow restrictive stenoses.; Mild atherosclerotic changes are noted at both common carotid bifurcations and proximal ICAs.; IMPRESSION:; Mild atherosclerotic changes are noted at both common carotid bifurcations and proximal ICAs.; Thank you for your kind referral of this patient; ; Outcome: 19:53 Decision to Hospitalize by Provider. bridget 12/14 16:55 Patient left the ED. [facility] Signatures: Dispatcher [employer] EDMS Camilla Rodriguez, RN RN shira Shepard, Tatiana Dexter, RN RN paulina Urbano, Kim, Reg Reg gb FaizaGrecia,Priyanka,RN RN ck1 Drew GannMey, Cement Mixer Unit ml3 Joe Naylor, ORDER MANAGER ORDER MANAGER kb5 Marlin Mendoza, LINK TRAINER MAINTENANCE MAN LINK TRAINER MAINTENANCE MAN Yolette Jamison, RN RN heladioTracy Riggins, ORDER MANAGER ORDER MANAGER ct3 Francois Sandoval dem1 Lorena Fuentes gr2 Michael Lorenz mm15 Erika Carias,RN RN js15 Yesi Pizarro,RN RN kc3 Corrections: (The following items were deleted from the chart) 12/13 15:01 15:01 CARDIAC INJURY PROFILE+LAB sent. [facility] EDIL 15:01 15:01 TROPONIN+LAB sent. [facility] Chart Complete MTDD
--- NOTE | 2016-12-16 18:40 | DSES ---
DATE OF ADMISSION: 12/13/2016 DATE OF DISCHARGE: 12/16/2016 PRIMARY CARE PROVIDER: [facility]. CONSULTANTS: Dr. Pereira, neurologist. PROCEDURES: None. COMPLICATIONS: None. ADMISSION/DISCHARGE DIAGNOSES: 1. Acute left cerebellar infarct with dizziness. 2. Prediabetes. 3. Hypertension. HOSPITAL COURSE: The patient is an 81-year-old male who presented to [facility] on 12/13/2016, for dizziness for more than a week. The patient also presented with gait instability. Head CT was initially performed which suggested cerebellar infarction, and MRI/MRA of the brain was performed which showed acute left cerebellar infarct. The patient was admitted to the progressive care unit (PCU), and Dr. Pereira, neurologist, was consulted. The patient was started on the full-dose aspirin, Coreg and Lipitor. An echocardiogram was ordered which later came back with normal findings. The patient was followed with physical therapy. Gradually, the patient then returned to his baseline, and the patient is cleared for discharge by physical therapy. On 12/16/2016, the patient is determined medically stable for discharge with recommendation to followup with the primary care provider within one week, and follow with neurologist in two weeks. OBJECTIVE: VITAL SIGNS: Temperature is 97.4, pulse 75, respirations 20, blood pressure is 133/60, pulse oximetry 97% on room air. LABORATORY DATA: WBC 8.5, hemoglobin 13.6, hematocrit 36, platelet count 222. Sodium is 143, potassium 4.3, chloride 106, carbon dioxide 29, BUN 27, creatinine 1.24, GFR is 59.7, fasting glucose 103. Calcium is 8.5. Urinalysis is negative. MICROBIOLOGY: Urine culture is negative. IMAGING: Chest x-ray showed no acute disease. CT of the head without contrast showed small vessel ischemic disease. Old right cerebellar lacunar infarct. Possible small left cerebellar infarction versus volume averaging with the horizontal fissure. Mild volume loss. MRI of the carotids without, followed by with contrast, showed mild atherosclerotic changes at both common carotid bifurcations and proximal ICA. MRI of the brain without contrast showed generalized age-appropriate parenchymal atrophy. Bilateral periventricular and subcortical white matter severe chronic ischemic changes. Chronic ethmoid and maxillary sinusitis. Acute left cerebellar infarct. MRA of the brain without contrast showed MRA of the [place] is within normal limits. DISCHARGE MEDICATIONS: - aspirin 325 mg by mouth daily - atorvastatin 40 mg by mouth daily - carvedilol 3.125 mg by mouth daily - Colace 100 mg by mouth twice a day DISCHARGE INSTRUCTIONS: Discontinue lines. Discharge home. Activity as tolerated. Low-salt diet as tolerated. The patient should follow with the primary care provider in [facility] in one week. The patient should follow with Dr. Pereira in two weeks. CONDITION ON DISCHARGE: Stable. DISCHARGE TIME: Greater than 30 minutes.
== END 2016-12-16 10:40 | disposition home or self-care (01) | DRG 66 ==
LOC: M ED 12:17 → M ED INP 19:39 → M PCU 12-14 16:50
PROVIDERS: ADMIT Hospitalist; ATTEND Internal Medicine
DX: I63.9 Cerebral infarction, unspecified (principal); I16.0 Hypertensive urgency; R73.03 Prediabetes; R26.81 Unsteadiness on feet; I65.23 Occlusion and stenosis of bilateral carotid arteries; E78.5 Hyperlipidemia, unspecified; J32.2 Chronic ethmoidal sinusitis; J32.0 Chronic maxillary sinusitis; Z79.899 Other long term (current) drug therapy; Z87.891 Personal history of nicotine dependence

== ENCOUNTER → 2021-02-07 | Outpatient (CLI) | payer MEDICARE ==
[~2021-02-07] MED LIST: ASPI-1 PO; ATOR1TAB21 PO; CARV3.12 PO; COLA100C5 PO; FISH1000 PO; GLUC1CAP9 PO; ISOVUE-370 76% 100ML VIAL As Ordered ONE
--- NOTE | 2021-02-07 11:47 | REP ---
INDICATION: Dizziness and giddiness. COMPARISON: MRA neck 12/13/2016. TECHNIQUE: Axial images with multiplanar reconstructions with contrast. FINDINGS: The right vertebral artery is dominant. The left appears congenitally small and with multiple stenoses throughout its length. The low the right vertebral artery becomes the basilar artery. On the right, the common and internal carotid arteries appear widely patent. There is atherosclerotic calcification at the carotid bifurcation on the right. New On the left, there is the common carotid artery narrows as at the bifurcation with the internal carotid artery, there is STI atherosclerotic narrowing perhaps 50% on the left. Other there is severe degenerative disc degenerative disease in the search of the cervical spine. There is a slight retrolisthesis of C3 over C4 as well as a left convex curvature. Osteophytes contribute to multilevel foraminal stenosis. There appears to be a canal stenosis at C3-4 level where the osseous canal narrows to approximately 8.5 mm. Foraminal stenosis appears high-grade at C3-4, C4-5, and C5-6 on the left. IMPRESSION: 1. The right vertebral artery is dominant the left appears congenitally small with multiple stenoses. 2. The right common and internal carotid arteries appear widely patent without significant stenosis. There is atherosclerotic calcification at the right bifurcation. 3. On the left, there is narrowing at the bifurcation, perhaps 50%, with atherosclerotic calcification. 4. Significant cervical DJD with canal narrowing and high-grade foraminal stenosis. <Electronically signed by Gerard Rae > 02/07/21 [id number]
== END ==
LOC: M RAD 09:28
DX: R42 Dizziness and giddiness (principal)
CPT/HCPCS: 70498; Q9967

== ENCOUNTER 2021-05-13 09:53 | Inpatient (IN) | payer MEDICARE ==
[~2021-05-13] VITALS: Ht 182.9 cm; Wt 66.5 kg
[~2021-05-13 09:53] MED LIST changes: -ISOVUE-370 76% 100ML VIAL As Ordered ONE
--- NOTE | 2021-05-13 11:00 | REP ---
INDICATION: afib. COMPARISON: 12/13/2016 TECHNIQUE: AP portable seated FINDINGS: Lungs are well inflated. CP angle sharply defined without effusion. No lateral pleural thickening apical scarring pneumothorax or acute infiltrate no parenchymal mass or nodule visible. The heart, mediastinal and hilar contours are unchanged. The aorta is calcifications the arch without aneurysm. No widening of the mediastinum. Some degenerative changes of the shoulders and spine again seen. IMPRESSION: 1. No acute cardiopulmonary change. Heart, mediastinal and hilar contours unchanged without cardiomegaly, edema, effusion or other significant finding. <Electronically signed by Cory Mcmanus > 05/13/21 105
[2021-05-13 11:04] LABS: BASO # 0.1 10^3/uL (0.0-0.2); BASO % 0.4 % (0.0-1.0); HEMATOCRIT 44.8 % (42.0-52.0); HEMOGLOBIN 14.7 g/dl (13.5-17.5); LYMPH # 0.9 10^3/uL (1.5-5.0); LYMPH % 7.5 % (24.0-44.0); MEAN CORPUSCULAR HGB CONC 32.8 g/dl (32.0-36.5); MEAN CORPUSCULAR VOLUME 91.4 fl (80.0-96.0); MONO % 8.6 % (2.0-8.0); NEUTROPHILS % 83.1 % (36.0-66.0); PLATELET COUNT, AUTOMATED 188 10^3/uL (150-450); WHITE BLOOD COUNT 12.1 10^3/uL (4.0-10.0)
[2021-05-13 11:34] LABS: BLOOD UREA NITROGEN 24 MG/DL (7-18); CALCIUM LEVEL 8.7 MG/DL (8.8-10.2); CARBON DIOXIDE LEVEL 27 MEQ/L (21-32); CHLORIDE LEVEL 106 MEQ/L (98-107); CK-MB VALUE MASS 2.1 NG/ML (<3.6); CPK CREATINE PHOSPHOKINASE 195 U/L (39-308); CREATININE FOR GFR 1.89 MG/DL (0.70-1.30); GLOMERULAR FILTRATION RATE 36.4 (>35); GLUCOSE, FASTING 162 MG/DL (70-100); MAGNESIUM LEVEL 2.1 MG/DL (1.8-2.4); MB/CK RELATIVE INDEX 1.08 (< OR =4); POTASSIUM SERUM 4.5 MEQ/L (3.5-5.1); SODIUM LEVEL 141 MEQ/L (136-145); TROPONIN I < 0.02 NG/ML (< 0.10)
[2021-05-13] MEDS ORDERED: DIGOXIN INJ 0.5 MG/2 ML AMP (J1160) IV ONE (11:45)
[2021-05-13] MEDS ORDERED: VITMTA PO (13:04)
[2021-05-13] MEDS ORDERED: D31000TA2 PO (13:04)
[2021-05-13] MEDS ORDERED: BAYE325T13 PO (13:04)
[2021-05-13 13:20] LABS: RSV AMPLIFICATION NEGATIVE (NEGATIVE)
[2021-05-13] MEDS ORDERED: ACETAMINOPHEN TAB 650MG DOSE (2X325MG) PO PRN (14:40)
--- NOTE | 2021-05-13 14:58 | HPEPDOC ---
[facility] Medical History & Physical Date of Admission May 13, 2021 Date of Service: May 13, 2021 History and Physical Chief complaint: Who presented to the hospital with weakness and dizziness History of present illness: Patient is an 85-year-old male with a PMHx of Cerebellar CVA (2016; on ASA 325), who presented to the hospital with complaints of weakness and dizziness. Patient reported that he woke up this morning had reported an episode of diarrhea can make it to the bathroom had helped him. Patient had 2-3 episodes of diarrhea without any blood, described as watery. Patient denies any chest pain, shortness of breath or any cough. Has not spent any nausea, vomiting or abdominal discomfort. Denies any urinary discomfort or any recent fevers or chills. While in the emergency room, patient was noted to have atrial fibrillation with rapid ventricular response with heart rate in the 150-160s. Hospitalist services contacted for further evaluation and treatment Past Medical History: Cerebellar CVA (2016; on ASA 325) Past Surgical History: Nasal polyp removed by Dr. 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 No acute cardiopulmonary change. Heart, mediastinal and hilar contours unchanged without cardiomegaly, edema, effusion or other significant finding. EKG: See below Assessment and Plan: Dizziness / Weakness possibly 2/2 atrial fibrillation - Patient is reported weakness and dizziness over the last 1 week - In the emergency room, patient was noted to have atrial fibrillation with rates of 150 to 160s - EKG reviewed, consistent with atrial fibrillation - Troponin first set negative; will follow trend - TSH wnl - Imaging noted above - s/p Digoxin in the ER - Will get ECHO, will c/w telemetry - Will start Metoprolol 12.5 n6buans - Will start Eliquis; discussed risks / benefits with patient and - verbalized understanding ENRIQUE on CKD3 - Cr baseline of 1.1 (01/2021 from [place]) - Cr elevated - Will check UA / Urine electrolytes / Renal US - Will avoid nephrotoxic medications u - Will c/w IV fluid hydration Leukocytosis - likely 2/2 reactive etiology - ROS negative; however did report diarrhea - Will check GI panel - c/w IV fluid hydration for now Weakness - possibly 2/2 above, possibly 2/2 deconditioning - Will order PT / OT Cerebellar CVA (2016) - Recently had US carotid completed at [place] (01/2021) without any significant stenosis - Will reduce dose of ASA to 81 (re: starting Eliquis) Vitamin D deficiency - c/w Supplementation DVT prophylaxis - Will start Eliquis Vital Signs Vital Signs Date Time Temp Pulse Resp B/P (MAP) Pulse Ox O2 Delivery O2 Flow Rate FiO2 05/13/21 14:45 99 158/81 (106) 05/13/21 14:15 94 05/13/21 12:03 18 Room Air 05/13/21 09:54 97.9 Laboratory Data Labs 24H Laboratory Tests 2 05/13/21 10:51: 05/13/21 10:52: Immature Granulocyte % (Auto) 0.4, Neutrophils (%) (Auto) 83.1H, Lymphocytes (%) (Auto) 7.5L, Monocytes (%) (Auto) 8.6H, Eosinophils (%) (Auto) 0.0, Basophils (%) (Auto) 0.4, Neutrophils # (Auto) 10.0H, Lymphocytes # (Auto) 0.9L, Monocytes # (Auto) 1.0H, Eosinophils # (Auto) 0.0, Basophils # (Auto) 0.1, Nucleated Red Blood Cells % (auto) 0.0, Anion Gap 8, Glomerular Filtration Rate 36.4, Calcium Level 8.7L, Magnesium Level 2.1, Total Creatine Kinase 195, Creatine Kinase MB 2.1, Creatine Kinase MB Relative Index 1.08, Troponin I < 0.02, Thyroid Stimula ting Hormone (TSH) 2.720 05/13/21 12:34: Coronavirus (COVID-19)(PCR) NEGATIVE, Influenza Type A (RT-PCR) NEGATIVE, Influenza Type B (RT-PCR) NEGATIVE, Respiratory Syncytial Virus (PCR) NEGATIVE CBC/BMP Laboratory Tests 05/13/21 10:52 Home Medications Scheduled Aspirin (Aspirin) 325 Mg Tablet, 325 MG PO DAILY Cholecalciferol (Vitamin D3) (Vitamin D3) 1,000 Unit Tablet, 1,000 UNITS PO DAILY Multivitamins (Thera M Plus Tablet) 1 Each Tablet, 1 TAB PO DAILY Allergies Coded Allergies: No Known Drug Allergies (Verified Allergy, Unknown, 05/13/21) LAINEY SIMONS MD May 13, 2021 14:58
[2021-05-13 15:19] LABS: OSMOLALITY SERUM 297 MOSM/KG (280-301)
[2021-05-13 17:15] LABS: ALBUMIN 3.7 GM/DL (3.2-5.2); ALT/SGPT 26 U/L (12-78); BILIRUBIN,DIRECT 0.1 MG/DL (0.0-0.2); BILIRUBIN,TOTAL 0.5 MG/DL (0.2-1.0)
--- NOTE | 2021-05-13 17:59 | REP ---
INDICATION: ENRIQUE. COMPARISON: None. TECHNIQUE: Standard renal sonography performed along with limited evaluation of the bladder. FINDINGS: The right kidney is 9.6 x 4.8 x 4.2 cm. Cortical thickness is preserved and cortical echogenicity is less than that of the adjacent liver. Hypoechoic pyramids present. No echogenic foci to suggest stone. No hydronephrosis, visible hydroureter or perinephric fluid. The left kidney is 9.9 x 4.2 x 4.8 cm. Cortical thickness and echogenicity are normal. Some hypoechoic pyramids are seen. There is no visible hydroureter and mild hydronephrosis noted on this left side. No echogenic foci to suggest a stone. The lower pole is a cortical cyst with simple characteristics 1.9 x 1.6 x 1.5 cm. The bladder is limited in evaluation as it is under filled. Wall appears trabeculated and there is an enlarged prostate measuring 5.5 x 4.6 x 4.8 cm indenting the bladder base with a lobulated contour. Few scattered echogenic calcifications are seen within the prostate. IMPRESSION: 1. Renal cortical thickness and echogenicity normal. I do not see significant atrophy. 2. Left kidney with a 1.9 x 1.6 cm lower pole simple cyst. There is mild left hydronephrosis. No renal stone visible on either side. 3. Limited evaluation of the bladder. There is enlarged prostate indenting the bladder base with a lobulated contour. Bladder fierro are trabeculated and it is underfilled for this examination. <Electronically signed by Croy Mcmanus > 05/13/21 [id number]
[2021-05-13 18:30] VITALS: BP 138/84
[2021-05-13 19:19] LABS: INR 0.97; PROTHROMBIN TIME 13.1 SECONDS (12.5-14.3)
[2021-05-13 19:44] LABS: CK-MB VALUE MASS 3.7 NG/ML (<3.6); MB/CK RELATIVE INDEX 1.16 (< OR =4); TROPONIN I 0.02 NG/ML (< 0.10)
[2021-05-13] MEDS: METOPROLOL TART 12.5 MG PER 1/2 TAB PO SCH (19:57)
[2021-05-13] MEDS: ASPIRIN 81MG ENTERIC TABLET PO SCH (19:57)
[2021-05-13] MEDS: MULTIVITAMINS/MINERALS THERAP 1 TAB PO SCH (19:58)
[2021-05-13] MEDS: VITAMIN D 1,000 INTERNATIONAL UNITS TABLET PO SCH (19:58)
[2021-05-13 20:00] VITALS: BP 150/70
[2021-05-13] MEDS: NS 1,000 ML IV SCH (20:12)
[2021-05-13] MEDS ORDERED: APIXABAN 2.5 MG TAB (ELIQUIS) PO SCH (21:00)
[2021-05-13] MEDS ORDERED: LORazepam 2 MG/ML VIAL IV PRN (21:55)
--- NOTE | 2021-05-13 22:10 | ECGEPIP ---
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
[2021-05-13 23:25] LABS: CK-MB VALUE MASS 4.7 NG/ML (<3.6); MB/CK RELATIVE INDEX 1.46 (< OR =4); TROPONIN I 0.02 NG/ML (< 0.10)
[2021-05-14] VITALS: BP 110/56
[2021-05-14 04:00] VITALS: BP 136/68
[2021-05-14 05:08] LABS: HEMATOCRIT 41.5 % (42.0-52.0); HEMOGLOBIN 13.7 g/dl (13.5-17.5); MEAN CORPUSCULAR HEMOGLOBIN 29.9 pg (27.0-33.0); MEAN CORPUSCULAR VOLUME 90.6 fl (80.0-96.0); PLATELET COUNT, AUTOMATED 174 10^3/uL (150-450); RED BLOOD COUNT 4.58 10^6/uL (4.30-6.10)
[2021-05-14 05:36] LABS: CALCIUM LEVEL 8.2 MG/DL (8.8-10.2); CREATININE FOR GFR 1.55 MG/DL (0.70-1.30); GLOMERULAR FILTRATION RATE 45.7 (>35); MAGNESIUM LEVEL 2.1 MG/DL (1.8-2.4); POTASSIUM SERUM 3.9 MEQ/L (3.5-5.1)
[2021-05-14 05:52] LABS: ATYPICAL LYMPH 1 % (0-5); LYMPHOCYTES 7 % (16-44); MONOCYTES 9 % (0-5); NEUTROPHILS 74 % (28-66); PLATELET ESTIMATE NORMAL (NORMAL)
[2021-05-14] MEDS: METOPROLOL TART 12.5 MG PER 1/2 TAB PO SCH ×2 (07:34)
[2021-05-14 08:00] VITALS: BP 138/82
[2021-05-14] MEDS: MULTIVITAMINS/MINERALS THERAP 1 TAB PO SCH (08:35)
[2021-05-14] MEDS: ASPIRIN 81MG ENTERIC TABLET PO SCH (08:35)
[2021-05-14] MEDS: VITAMIN D 1,000 INTERNATIONAL UNITS TABLET PO SCH (08:35)
[2021-05-14] MEDS: APIXABAN 2.5 MG TAB (ELIQUIS) PO SCH ×2 (08:36→21:15)
--- NOTE | 2021-05-14 09:09 | IPNPDOC ---
Text Note Date of Service The patient was seen on 05/14/21. NOTE Subjective: Patient is an 85-year-old male with a PMHx of Cerebellar CVA (2017; on ASA 325), who presented to the hospital with complaints of weakness and dizziness. Patient reported that he woke up this morning had reported an episode of diarrhea can make it to the bathroom had helped him. While in the emergency room, patient was noted to have atrial fibrillation with rapid ventricular response with heart rate in the 150-160s. Patient was admitted to the hospital service for further evaluation and treatment of atrial fibrillation. Patient was seen and examined at the bedside. Currently patient denies any chest pain, shortness of breath or palpitations. Has not experienced any nausea or vomiting. Denies any abdominal discomfort or diarrhea. Objective: Vitals (See below) General: Lying in bed, appears comfortable, Awake / Alert, Oriented to person / place, not to time, knew the president HEENT: NC, AT CVS: +S1S2 Lungs: Fair air entry b/l, no evidence of wheezing, rales or rhonchi Abdomen: Soft, ND, NT Extremities: No evidence of edema, - Calf tenderness Imaging: CXR 05/13: 1. No acute cardiopulmonary change. Heart, mediastinal and hilar contours unchanged without cardiomegaly, edema, effusion or other significant finding. Assessment and plan: Dizziness / Weakness possibly 2/2 atrial fibrillation - Patient is reported weakness and dizziness over the last 1 week; currently does not report any dizziness - In the ER, patient was noted to have atrial fibrillation with rates of 150 to 160s - EKG reviewed, consistent with atrial fibrillation - Troponin trend negative - TSH wnl - Imaging noted above - s/p Digoxin in the ER - Will get ECHO, will c/w telemetry - c/w Metoprolol - will increase dose - c/w Eliquis; discussed risks / benefits with patient and - verbalized understanding; (Dosing to be adjusted by pharmacy for Age/Weight/Cr) ENRIQUE on CKD3 - Cr baseline of 1.1 (01/2021 from [place]) - Cr elevated; improving - Urine electrolytes / Renal US - Will avoid nephrotoxic medications - Will c/w IV fluid hydration Leukocytosis - likely 2/2 reactive etiology, possibly 2/2 infectious etiology - 2/2 UTI - ROS negative - no further diarrhea noted - UA abnormal - Will start Ceftriaxone - c/w IV fluid hydration for now Weakness - possibly 2/2 above, possibly 2/2 deconditioning - Will start PT / OT Cerebellar CVA (2017) - Recently had US carotid completed at [place] (01/2021) without any significant stenosis - c/w reduced dose of ASA to 81 (re: starting Eliquis) Vitamin D deficiency - c/w Supplementation DVT prophylaxis - c/w Eliquis (Dosing per pharmacy) Disposition: - Awaiting clinical improvement VSMaral, I+O VSMaral I+O Laboratory Tests 05/13/21 10:52 05/14/21 04:46 Vital Signs Date Time Temp Pulse Resp B/P (MAP) Pulse Ox O2 Delivery O2 Flow Rate FiO2 05/14/21 08:00 98.1 93 18 138/82 (100) 96 Room Air I&O- Last 24 Hours up to 6 AM 05/14/21 05:59 Intake Total 520 ml Output Total 0 ml Balance 520 ml LAINEY SIMONS MD May 14, 2021 09:09
[2021-05-14] MEDS: NS 1,000 ML IV SCH ×3 (11:02→21:59)
[2021-05-14] MEDS: cefTRIAXone SOD 1 GM in D5W MINI-BAG PLUS 50 ML IV SCH (11:03)
[2021-05-14 11:38] VITALS: BP 133/69
[2021-05-14] MEDS: METOPROLOL TART 25 MG TABLET PO SCH ×2 (12:52→17:13)
[2021-05-14 17:03] VITALS: BP 141/70
[2021-05-14] MEDS ORDERED: LORazepam 2 MG/ML VIAL IV ONE (19:30)
[2021-05-14 20:00] VITALS: BP 116/73
[2021-05-14] MEDS ORDERED: QUEtiapine FUMARATE 12.5 MG HALF-TAB PO ONE (22:00)
--- NOTE | 2021-05-14 22:46 | ECHO ---
ECHOCARDIOGRAM DATE OF PROCEDURE: 05/14/2021 Age: 85 Gender: Male Height: 183 cm Weight: 65 kg REFERRING PHYSICIAN: Dr. Francia Stevenson INDICATION: Abnormal ECG 2D MEASUREMENTS: Aortic root 2.9 cm Ventricular septum 1.10 cm Posterior wall 1.10 cm Left ventricle diastole 3.3 cm Left atrium 2.9 cm Inferior vena cava 1.8 cm (more than 50% respiratory variation) Doppler Measurements: No aortic stenosis No aortic regurgitation Aortic valve velocity 123 cm/s Trace mitral regurgitation Mitral E velocity 62.6 cm/s Mitral A velocity 80.1 cm/s Very mild tricuspid regurgitation No pulmonic regurgitation Pulmonary acceleration time 82 m/sec MITRAL ANNULAR TISSUE DOPPLER: E prime lateral 7.8 cm/s E prime septal 7.1 cm/s. DESCRIPTION: Rhythm was sinus. There was a moderately technically difficult echocardiogram. This was a 2D, M-mode, color flow Doppler and pulsed wave Doppler examination including mitral annular tissue Doppler. Sinus rhythm with frequent PVCs. No pericardial effusion. CONCLUSIONS: 1. Normal left ventricle internal dimensions and wall thickness. Normal regional LV wall motion and wall thickening. Normal LV systolic function. LVEF of 65% by visual estimate. Grade 1 LV diastolic dysfunction. 2. Moderate aortic valve sclerosis of a 3-cusp aortic valve. No aortic stenosis or regurgitation. 3. Suggestive of moderate elevation of pulmonary artery systolic pressure. Normal right ventricle size and systolic function. Normal central venous pressure. 3. No pericardial effusion. 4. Otherwise normal appearing echocardiogram Doppler findings.
[2021-05-15] VITALS (9 sets, daily range): BP systolic 92–134; BP diastolic 56–75
[2021-05-15] MEDS ORDERED: LORazepam 2 MG/ML VIAL IV ONE (01:40)
[2021-05-15 05:32] LABS: BASO % 0.4 % (0.0-1.0); EOS # 0.2 10^3/uL (0.0-0.5); EOS % 2.7 % (0.0-3.0); HEMATOCRIT 38.5 % (42.0-52.0); LYMPH # 1.5 10^3/uL (1.5-5.0); LYMPH % 17.2 % (24.0-44.0); MEAN CORPUSCULAR HEMOGLOBIN 30.2 pg (27.0-33.0); MEAN CORPUSCULAR HGB CONC 33.8 g/dl (32.0-36.5); MEAN CORPUSCULAR VOLUME 89.5 fl (80.0-96.0); MONO # 1.5 10^3/uL (0.0-0.8); MONO % 16.8 % (2.0-8.0); NEUTROPHILS # 5.6 10^3/uL (1.5-8.5); NEUTROPHILS % 62.5 % (36.0-66.0); PLATELET COUNT, AUTOMATED 185 10^3/uL (150-450)
[2021-05-15 06:01] LABS: BLOOD UREA NITROGEN 24 MG/DL (7-18); CALCIUM LEVEL 7.9 MG/DL (8.8-10.2); CARBON DIOXIDE LEVEL 28 MEQ/L (21-32); CHLORIDE LEVEL 107 MEQ/L (98-107); CREATININE FOR GFR 1.14 MG/DL (0.70-1.30); GLOMERULAR FILTRATION RATE > 60.0 (>35); GLUCOSE, FASTING 106 MG/DL (70-100); POTASSIUM SERUM 3.7 MEQ/L (3.5-5.1); SODIUM LEVEL 139 MEQ/L (136-145)
[2021-05-15] MEDS ORDERED: METOCLOPRAMIDE INJ 10MG/2ML VIAL (J2765 PER 1) IV ONE (06:20)
[2021-05-15] MEDS ORDERED: METOPROLOL 5 MG/5 ML VIAL As Ordered ONE (06:26)
[2021-05-15] MEDS ORDERED: METOPROLOL 5 MG/5 ML VIAL IV STA (06:30)
[2021-05-15] MEDS: NS 1,000 ML IV SCH ×2 (06:49→18:03)
[2021-05-15] MEDS: METOPROLOL TART 25 MG TABLET PO SCH ×4 (07:48→19:39)
--- NOTE | 2021-05-15 08:09 | REP ---
INDICATION: hypoxemia. COMPARISON: Comparison chest x-ray May 13, 2021.. TECHNIQUE: Semi-erect AP portable chest x-ray. FINDINGS: Right hemidiaphragm is somewhat elevated. The lungs are otherwise well inflated and clear. The pleural angles are sharp. The heart is not enlarged. The pulmonary vasculature is not increased. Thoracic aorta is calcific and minimally tortuous. IMPRESSION: Elevated right hemidiaphragm. Otherwise no active cardiopulmonary disease. <Electronically signed by Vikram Pelayo > 05/15/21 [id number]
[2021-05-15 08:21] LABS: ABG BASE EXCESS -3.9 (-2.0-2.0); ABG HCO3 18.9 MEQ/L (22.0-26.0); ABG O2 SATURATION 97.1 % (95.0-99.0); ABG PARTIAL PRESSURE CO2 28.4 mmHg (35.0-45.0); ABG PARTIAL PRESSURE O2 94.3 mmHg (75.0-100.0); ABG STANDARD HCO3 21.2 MEQ/L (22.0-26.0); ABG TOTAL CO2 19.8 MEQ/L (23.0-31.0); ABG pH (ARTERIAL) 7.441 UNITS (7.350-7.450)
[2021-05-15] MEDS: MULTIVITAMINS/MINERALS THERAP 1 TAB PO SCH (09:43)
[2021-05-15] MEDS: VITAMIN D 1,000 INTERNATIONAL UNITS TABLET PO SCH (09:43)
[2021-05-15] MEDS: ASPIRIN 81MG ENTERIC TABLET PO SCH (09:43)
[2021-05-15] MEDS: APIXABAN 2.5 MG TAB (ELIQUIS) PO SCH ×2 (09:43→21:09)
[2021-05-15] MEDS: cefTRIAXone SOD 1 GM in D5W MINI-BAG PLUS 50 ML IV SCH (10:05)
--- NOTE | 2021-05-15 11:59 | IPNPDOC ---
Subjective Date Seen The patient was seen on 05/15/21. Subjective Chief Complaint/HPI Alfredo is resting in bed at this time. Overnight he was agitated with elevated heart rates into the 160s. His heart rate is currently in the 80s to 100 range. He is not complaining chest discomfort. There was concern with hypoxia but his chest x-ray and ABG done this a.m. are fine Objective Physical Examination General Exam: Positive: Alert, No Acute Distress Eye Exam: Positive: PERRLA, Conjunctiva & lids normal, EOMI; Negative: Sclera icteric ENT Exam: Positive: Atraumatic, Mucous membr. moist/pink, Pharynx Normal Neck Exam: Positive: Supple; Negative: JVD, thyromegaly Chest Exam: Positive: Clear to auscultation, Normal air movement Heart Exam: Positive: Rate Normal, Irregular Rhythm, Normal S1, Normal S2; Negative: Murmurs, Rubs Telemetry: Positive: No significant arrhythmia Abdomen Exam: Positive: Normal bowel sounds, Soft; Negative: Tenderness, Hepatospenomegaly Male Exam: Positive: Normal Genital Exam Extremity Exam: Positive: Normal pulses; Negative: Clubbing, Cyanosis, Edema Skin Exam: Positive: Nl turgor and temperature; Negative: Rash, Breakdown Neuro Exam: Positive: Normal Gait, Normal Speech, Cranial Nerves 3-12 NL, Reflexes 2+ Psych Exam: Positive: Mental status NL, Mood NL, Oriented x 3 Assessment /Plan Assessment Dizziness / Weakness possibly 2/2 atrial fibrillation - Troponin trend negative - TSH wnl - Imaging noted above - s/p Digoxin in the ER - echo reviewed: grade 1 LV diastolic dysfunction - c/w Metoprolol - will increase dose - c/w Eliquis; discussed risks / benefits with patient and - verbalized understanding; (Dosing to be adjusted by pharmacy for Age/Weight/Cr) ENRIQUE on CKD3 - resolved, stop IVFs Leukocytosis - likely 2/2 reactive etiology, possibly 2/2 infectious etiology - 2/2 UTI Possible acute cystitis, POA - UA abnormal, awaiting cx - continue Ceftriaxone - c/w IV fluid hydration for now Weakness - possibly 2/2 above, possibly 2/2 deconditioning -PT / OT following H/o Cerebellar CVA (2016) - Recently had US carotid completed at [facility] (01/2021) without any significant stenosis - can stop baby asa Vitamin D deficiency - c/w Supplementation DVT prophylaxis - c/w Eliquis (Dosing per pharmacy) Disposition: - Awaiting clinical improvement, likely discharge in next 24-48h Plan/VTE VTE Prophylaxis Ordered?: Yes VS, I&O, 24H, Fishbone Vital Signs/I&O Vital Signs Date Time Temp Pulse Resp B/P (MAP) Pulse Ox O2 Delivery O2 Flow Rate FiO2 05/15/21 08:00 98.2 86 20 124/75 (91) 94 Room Air I&O- Last 24 Hours up to 6 AM 05/15/21 06:00 Intake Total 1750 ml Output Total 180 ml Balance 1570 ml Laboratory Data 24H LABS Laboratory Tests 2 05/15/21 05:22: Immature Granulocyte % (Auto) 0.4, Neutrophils (%) (Auto) 62.5, Lymphocytes (%) (Auto) 17.2L, Monocytes (%) (Auto) 16.8H, Eosinophils (%) (Auto) 2.7, Basophils (%) (Auto) 0.4, Neutrophils # (Auto) 5.6, Lymphocytes # (Auto) 1.5, Monocytes # (Auto) 1.5H, Eosinophils # (Auto) 0.2, Basophils # (Auto) 0.0, Nucleated Red Blood Cells % (auto) 0.0, Anion Gap 4L, Glomerular Filtration Rate > 60.0, Calcium Level 7.9L, Magnesium Level 2.0 05/15/21 08:09: Blood Gas Bicarbonate Standard 21.2L, Arterial Blood pH 7.441, Arterial Blood Partial Pressure CO2 28.4L, Arterial Blood Partial Pressure O2 94.3, Arterial Blood Total CO2 19.8L, Arterial Blood HCO3 18.9L, Arterial Blood Base Excess - 3.9L, Arterial Blood Oxygen Saturation 97.1 CBC/BMP Laboratory Tests 05/15/21 05:22 Microbiology Microbiology 05/14/21 Urine Culture - Final, Complete SHEILA LEMONS MD May 15, 2021 11:59
[2021-05-15] MEDS ORDERED: HALOPERIDOL 5MG/ML VIAL (J1630 PER 1) IV PRN (18:25)
[2021-05-16 00:08] VITALS: BP 133/66
[2021-05-16] MEDS: METOPROLOL TART 25 MG TABLET PO SCH ×2 (00:10→06:40)
[2021-05-16 04:13] VITALS: BP 127/66
[2021-05-16 05:25] LABS: BASO # 0.1 10^3/uL (0.0-0.2); BASO % 0.8 % (0.0-1.0); EOS # 0.3 10^3/uL (0.0-0.5); EOS % 3.9 % (0.0-3.0); LYMPH # 1.3 10^3/uL (1.5-5.0); MEAN CORPUSCULAR HEMOGLOBIN 29.9 pg (27.0-33.0); MEAN CORPUSCULAR HGB CONC 33.3 g/dl (32.0-36.5); MEAN CORPUSCULAR VOLUME 89.8 fl (80.0-96.0); MONO # 1.2 10^3/uL (0.0-0.8); MONO % 14.1 % (2.0-8.0); NEUTROPHILS # 5.4 10^3/uL (1.5-8.5); NEUTROPHILS % 64.8 % (36.0-66.0); PLATELET COUNT, AUTOMATED 219 10^3/uL (150-450); RED BLOOD COUNT 4.01 10^6/uL (4.30-6.10); WHITE BLOOD COUNT 8.3 10^3/uL (4.0-10.0)
[2021-05-16 05:49] LABS: BLOOD UREA NITROGEN 14 MG/DL (7-18); CARBON DIOXIDE LEVEL 28 MEQ/L (21-32); CHLORIDE LEVEL 111 MEQ/L (98-107); CREATININE FOR GFR 0.98 MG/DL (0.70-1.30); GLOMERULAR FILTRATION RATE > 60.0 (>35); GLUCOSE, FASTING 98 MG/DL (70-100); MAGNESIUM LEVEL 2.1 MG/DL (1.8-2.4); POTASSIUM SERUM 3.8 MEQ/L (3.5-5.1); SODIUM LEVEL 143 MEQ/L (136-145)
[2021-05-16 06:40] VITALS: BP 169/81
[2021-05-16 08:00] VITALS: BP 149/75
[2021-05-16] MEDS ORDERED: METO50TA7 PO (09:20)
[2021-05-16] MEDS ORDERED: ELIQ5TAB PO (09:20)
[2021-05-16] MEDS: VITAMIN D 1,000 INTERNATIONAL UNITS TABLET PO SCH (11:24)
[2021-05-16] MEDS: ASPIRIN 81MG ENTERIC TABLET PO SCH (11:24)
[2021-05-16] MEDS: APIXABAN 2.5 MG TAB (ELIQUIS) PO SCH (11:24)
[2021-05-16] MEDS ORDERED: APIXABAN 5 MG TAB (ELIQUIS) PO SCH (21:00)
--- NOTE | 2021-05-17 07:43 | DSES ---
DISCHARGE SUMMARY DATE OF ADMISSION: 05/13/2021 DATE OF DISCHARGE: 05/16/2021 DISCHARGE DIAGNOSES: 1. New onset atrial fibrillation with rapid ventricular rate causing dizziness and weakness. 2. Acute kidney injury superimposed on chronic kidney disease (CKD), stage III. 3. Leukocytosis, likely reactive in nature. 4. Ruled out for acute cystitis with urine culture showing contaminate. 5. History of stroke. 6. History of dementia. PROCEDURES PERFORMED DURING THIS HOSPITALIZATION: None. CONSULTANTS ON THE CASE: None. DISPOSITION: The patient is discharged home with home health. CONDITION ON DISCHARGE: Stable. The patient is currently in sinus rhythm. DISCHARGE INSTRUCTIONS: The patient is instructed to take Eliquis 5 mg twice a day, as well as metoprolol 50 mg twice a day. He is of follow up with his primary care provider (PCP) within the next week. He is to return to the hospital if he develops rapid heart rate and is unable to control it with his oral medications. LABORATORY DATA: Pertinent labs are the following: White count was 12.1 on admission, it has trended down to 8.3, hemoglobin is 12, hematocrit 36, platelet counts are 219. Coag showed PT of 13.1, INR is 0.97. Sodium 142, potassium 2.8, chloride 111, bicarbonate is 28, anion gap is 4, BUN is 14, creatinine on admission was 1.89, it has improved to 0.98. Serial troponin markers were negative times 3. COVID and influenza swabs were negative. IMAGING STUDIES: Echocardiogram with Doppler: Please reference full report, but a brief summary of this showed that the patient had grade 1 left ventricular (LV) diastolic dysfunction with left ventricular ejection fraction estimated at 65% with moderate aortic valve sclerosis. No aortic stenosis or regurgitation. Moderate elevation of pulmonary artery systolic pressure. No evidence of pericardial effusion. ADDITIONAL IMAGING STUDIES: Chest x-ray one view showed no acute cardiopulmonary process. Repeat chest x-ray showed no acute changes on 05/15/21. Renal ultrasound showed no evidence of at meals acute findings. DISCHARGE MEDICATIONS ARE THE FOLLOWIN. Eliquis 5 mg twice a day. 2. metoprolol 50 mg twice a day 3. cholecalciferol 1000 units daily 4. multivitamins one capsule daily. I have discontinued the patient's full dose aspirin. HOSPITAL COURSE: Mr. Mario is n 85-year-old gentleman, who presented to the hospital with generalized weakness and dizziness. He was found to have acute kidney injury with elevation in his creatinine. He was hydrated with IV fluid. A renal ultrasound was obtained, which showed some mild left hydronephrosis with no evidence of obstruction. The patient was also found to be in atrial fibrillation with rapid ventricular rate. His heart rate was controlled. He was transitioned to oral medications. He was started on Eliquis. Echocardiogram was obtained, which was otherwise unremarkable as described above. Clinically, there was suspicion, because the patient was having some altered mental status, whether he could have a urinary tract infection (UTI) due to his elevated leukocytosis on admission. The patient was empirically started on Rocephin. Urine cultures came back as a contaminate. Antibiotics were discontinued. The patient spontaneously converted to a sinus rhythm today. I have had discussion with both he, his and his daughter. The patient will be discharged today in stable condition. At the time of discharge, the patient's temperature is 98.3, pulse is 76 and regular, respirations are 16, O2 saturation is 94% on room air, blood pressure is 149/75. General: The patient is alert and oriented times [address], slightly disoriented to time. His skin is intact with some old areas of bruising on his upper extremities. Head is atraumatic. Pupils symmetric and reactive to light. Oropharynx is clear. No facial symmetry. Speech is fluent. Oropharynx is clear without any erythema or thrush. Neck supple. Lung sounds presence without rales or rhonchi. Heart: S1, S2. He is currently in a sinus rhythm. Abdomen is soft, nontender, non-distended. Extremities without any significant cyanosis, clubbing or edema. Total of 30 minutes spent completing all discharge paperwork. Primary Care Provider.
== END 2021-05-16 11:50 | disposition home health service (06) | DRG 309 ==
LOC: M ED 09:53 → CANBEDREQ 14:12 → M ED INP 14:39 → ENRESERV 16:19 → M PCU 18:24
PROVIDERS: ADMIT Internal Medicine; ATTEND Internal Medicine
DX: I48.91 Unspecified atrial fibrillation (principal); N17.9 Acute kidney failure, unspecified; N13.30 Unspecified hydronephrosis; Z86.73 Personal history of transient ischemic attack (TIA), and cerebral infarction without residual deficits; N18.30 Chronic kidney disease, stage 3 unspecified; D72.829 Elevated white blood cell count, unspecified; E55.9 Vitamin D deficiency, unspecified; F03.90 Unspecified dementia, unspecified severity, without behavioral disturbance, psychotic disturbance, mood disturbance, and anxiety; Z20.822 Contact with and (suspected) exposure to COVID-19; Z79.82 Long term (current) use of aspirin; Z79.899 Other long term (current) drug therapy